=== PATIENT | male | born 1945 ===

== ENCOUNTER 2018-06-15 14:12 | Inpatient (IN) | payer MEDICARE ==
[2018-06-16 23:04] VITALS: BMI 28.6
[2018-06-16] MEDS: Insulin Detemir 100 Units/ml Inj SC SCH (23:55)
[2018-06-17 06:48] LABS: HEMOGLOBIN 13.3 g/dL (12.0-18.0); MEAN CELL VOLUME 84.9 fl (80.0-94.0); MEAN CORPUSCULAR HEMOGLOBIN 28.5 pg (27.0-31.0); MEAN CORPUSCULAR HGB CONC 33.6 g/dL (33.0-37.0); RBC 4.67 Mil/uL (4.40-5.90); RED CELL DISTRIBUTION WIDTH 14.7 % (11.5-14.5); WHITE BLOOD COUNT 7.3 K/uL (4.8-10.8)
[2018-06-17] MEDS: Insulin Lispro (humaLOG) 100 Units/ml Inj SC SCH ×4 (06:51→22:51)
[2018-06-17 06:56] LABS: INR 1.1; PROTHROMBIN TIME 12.1 Seconds (9.8-13.1)
[2018-06-17 06:58] LABS: PARTIAL THROMBOPLASTIN TIME 32.3 Seconds (25.6-37.1)
[2018-06-17 07:13] LABS: ALB/GLOB RATIO 1.2 (1.0-2.1); ALBUMIN 3.6 g/dL (3.5-5.0); ALT/SGPT 37 U/L (21-72); AST/SGOT 30 U/L (17-59); BLOOD UREA NITROGEN 23 mg/dl (9-20); GFR NON-AFRICAN AMERICAN > 60
[2018-06-17] MEDS: Metoprolol Succinate 100 mg XL Tab PO SCH (08:56)
[2018-06-17] MEDS: Aspirin 325 mg EC Tablets PO SCH (08:57)
[2018-06-17] MEDS: Enoxaparin 40 mg Syringe SC SCH (10:00)
--- NOTE | 2018-06-17 11:03 | PCM.OPOC ---
Physiatry Overall Plan of Care - Overall Plan of Care Estimated Length of Stay in Weeks: 3 Rehab Impairment: Mobility, Gait, Balance, Coordination Etiologic Diagnosis: Cerebrovascular Accident Rehab/Medical Prognosis: Fair - Anticipated Interventions Physical Therapy:: Yes Number of Hours: 1.5 Number of times per week: 6 Number of Week(s) Duration: 3 Occupational Therapy:: Yes Number of Hours: 1.5 Number of times per week: 6 Number of Week(s) Duration: 3 Speech Therapy:: Yes Number of Hours: 1 Number of times per week: 5 Number of Week(s) Duration: 3 Recreational Therapy:: Yes Number of Hours: 1 Number of times per week: 5 Number of Week(s) Duration: 3 - Therapy Goals Bed Mobility: Supervision Ambulation: Contact Guard Functional Positional Changes:: Contact Guard - Functional Status Prior to Admission: Independent in ADLs and ambulation. Sometimes used a cane Current Status: Mod A with transfers. Max Ambulation Mod/max A ADLs - Functional Outcomes Functional Outcomes: Starting therapies now - Discharge Plan Identification of Barriers to Discharge: Home Situation (lives alone) Discharge Destination: Home
--- NOTE | 2018-06-17 11:08 | PCM.CPAPS ---
History of Present Illness - History of Present Illness History of Present Illness: Dr Li PMR consultation on Estuardo Aguilar, born 1945, who has been admitted to [facility] for acute inpatient rehabilitation Left HD male. Right CVA with dense left HP. Review of Systems - Constitutional Constitutional: absent: Chills - EENT Ears: absent: Ear Discharge, Ear Pain, Dizziness Nose/Mouth/Throat: absent: Nasal Congestion, Nasal Discharge - Cardiovascular Cardiovascular: absent: Chest Pain, Chest Pain at Rest - Respiratory Respiratory: absent: Hemoptysis - Gastrointestinal Gastrointestinal: absent: Abdominal Pain - Integumentary Integumentary: absent: Bleeding Lesions - Neurological Neurological: absent: Abnormal Hearing, Abnormal Movements, Numbness, Vertigo - Psychiatric Psychiatric: absent: Anxiety Past Patient History - Past Medical History & Family History Past Medical History?: Yes - Past Social History Smoking Status: Never Smoked Home Situation {Lives}: Alone (+ elevator) - CARDIAC Hx Hypercholesterolemia: Yes Hx Hypertension: Yes Other/Comment: Hx of STEMI with LAD stent - NEUROLOGICAL HX Cerebrovascular Accident: Yes Other/Comment: 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 - HEENT Other/Comment: right eye blind. - RENAL Hx Chronic Kidney Disease: No - ENDOCRINE/METABOLIC Hx Diabetes Mellitus Type 2: Yes - HEMATOLOGICAL/ONCOLOGICAL Hx AIDS: No Hx Human Immunodeficiency Virus (HIV): No - MUSCULOSKELETAL/RHEUMATOLOGICAL Hx Falls: Yes - PSYCHIATRIC Hx Substance Use: No - SURGICAL HISTORY Other/Comment: HX of STEMI with LAD stent - ANESTHESIA Hx Anesthesia: Yes Hx Anesthesia Reactions: No Hx Malignant Hyperthermia: No Has any member of the family had a problem w/ anesthesia?: No Meds Allergies/Adverse Reactions: Allergies Allergy/AdvReac Type Severity Reaction Status Date / Time No Known Allergies Allergy Verified 06/16/18 20:50 - Medications Medications: Current Medications Acetaminophen (Tylenol 325mg Tab) 650 mg PO Q6H PRN PRN Reason: Pain scale 4-10 Last Admin: 06/17/18 09:00 Dose: 650 mg Amlodipine Besylate (Norvasc) 5 mg PO DAILY [facility] Last Admin: 06/17/18 08:57 Dose: 5 mg Aspirin (Ecotrin) 325 mg PO DAILY [facility] Last Admin: 06/17/18 08:57 Dose: 325 mg Atorvastatin Calcium (Lipitor) 80 mg PO HS [facility] Last Admin: 06/16/18 23:54 Dose: 80 mg Docusate Sodium (Colace) 100 mg PO BID PRN PRN Reason: Constipation Last Admin: 06/17/18 08:54 Dose: 100 mg Enoxaparin Sodium (Lovenox) 40 mg SC DAILY [facility]; Protocol Gabapentin (Neurontin) 400 mg PO TID [facility] Last Admin: 06/17/18 08:55 Dose: 400 mg Insulin Detemir (Levemir) 30 units SC HS [facility] Last Admin: 06/16/18 23:55 Dose: 30 units Insulin Human Lispro (Humalog) 0 units SC ACHS [facility]; Protocol Last Admin: 06/17/18 06:51 Dose: 4 units Lidocaine (Lidoderm) 1 ea TD DAILY PRN PRN Reason: pain Lisinopril (Zestril) 20 mg PO DAILY [facility] Metoprolol Succinate (Toprol Xl) 100 mg PO DAILY [facility] Last Admin: 06/17/18 08:56 Dose: 100 mg Physical Exam - Constitutional Appears: Non-toxic, No Acute Distress - Head Exam Head Exam: ATRAUMATIC, NORMAL INSPECTION, NORMOCEPHALIC - ENT Exam ENT Exam: Mucous Membranes Moist - Respiratory Exam Respiratory Exam: NORMAL BREATHING PATTERN - Cardiovascular Exam Cardiovascular Exam: REGULAR RHYTHM - GI/Abdominal Exam GI & Abdominal Exam: absent: Distended - Extremities Exam Extremities exam: Negative for: calf tenderness - Neurological Exam Neurological exam: Alert, Oriented x3 - Psychiatric Exam Psychiatric exam: Normal Affect, Normal Mood - Skin Skin Exam: Warm Results - Vital Signs Recent Vital Signs: Last Vital Signs Temp 98.1 F 06/17/18 09:00 Pulse 76 06/17/18 08:57 Resp 22 06/17/18 08:22 BP 146/73 06/17/18 08:57 Pulse Ox 98 06/17/18 08:22 - Labs Result Diagrams: 06/17/18 05:25 06/17/18 05:25 Labs: Laboratory Results - last 24 hr 06/16/18 06/17/18 06/17/18 21:30 05:25 05:25 WBC 7.3 RBC 4.67 Hgb 13.3 Hct 39.6 MCV 84.9 MCH 28.5 MCHC 33.6 RDW 14.7 H Plt Count 185 PT 12.1 INR 1.1 APTT 32.3 Sodium Potassium Chloride Carbon Dioxide Anion Gap BUN Creatinine Est GFR ( Amer) Est GFR (Non-Af Amer) POC Glucose (mg/dL) 267 H Random Glucose Calcium Total Bilirubin AST ALT Alkaline Phosphatase Total Protein Albumin Globulin Albumin/Globulin Ratio 06/17/18 06/17/18 05:25 05:31 WBC RBC Hgb Hct MCV MCH MCHC RDW Plt Count PT INR APTT Sodium 133 Potassium 3.9 Chloride 94 L Carbon Dioxide 28 Anion Gap 15 BUN 23 H Creatinine 1.0 Est GFR ( Amer) > 60 Est GFR (Non-Af Amer) > 60 POC Glucose (mg/dL) 221 H Random Glucose 270 H Calcium 9.0 Total Bilirubin 0.7 AST 30 ALT 37 Alkaline Phosphatase 102 Total Protein 6.7 Albumin 3.6 Globulin 3.1 Albumin/Globulin Ratio 1.2 Assessment & Plan - Assessment and Plan (Free Text) Assessment: 72 y/o left HD male with dense left HP was independent [employer] no pain left UE 0/5 left LE 0/5 PT/OT to continue to help increase functional independence Team conference for d/c planning Pain: controlled Vascular: no evidence of DVT GI: No evidence of constipation or diarrhea Patient is an excellent acute rehabilitation candidate and will have focused PT, OT and recreational therapy to help facilitate a safe and appropriate d/c plan - Functional Status Prior to Admission: Independent [employer] Current Status: Mod/Max A in ADLs and ambulation Impairment Code: 01.1
[2018-06-17] MEDS: Insulin Detemir 100 Units/ml Inj SC SCH (21:49)
[2018-06-18] MEDS: Insulin Lispro (humaLOG) 100 Units/ml Inj SC SCH ×4 (06:52→21:10)
[2018-06-18] MEDS: Enoxaparin 40 mg Syringe SC SCH (08:12)
[2018-06-18] MEDS: Aspirin 325 mg EC Tablets PO SCH (08:29)
[2018-06-18] MEDS: Metoprolol Succinate 100 mg XL Tab PO SCH (09:09)
[2018-06-18] MEDS: Insulin Detemir 100 Units/ml Inj SC SCH (21:09)
--- NOTE | 2018-06-19 00:10 | CP.PCM.HP ---
History of Present Illness - History of Present Illness History of Present Illness: CC: Acute CVA and Left Hemiplegia History of Present Illness: A 72yoM with H/O HTN, DM II, CAD S/p Stent with recurrent Falls was hospitalized for a fall, and found to have Acute CAV with left Hemiplegia, and also had Left Humeral Neck Fracture on sling. Patient admitted for Acute Rehab. Present on Admission - Present on Admission Any Indicators Present on Admission: No Review of Systems - Review of Systems All systems: reviewed and no additional remarkable complaints except Review of Systems: as per HPI Past Patient History - Past Medical History & Family History Past Medical History?: Yes Past Family History: Reviewed and not pertinent - Past Social History Smoking Status: Never Smoked Alcohol: None Drugs: Denies ( ) Home Situation {Lives}: Alone (+ elevator) - CARDIAC Hx Cardiac Disorders: Yes Hx Heart Attack: Yes (LAD stent) Hx Hypercholesterolemia: Yes Hx Hypertension: Yes - NEUROLOGICAL HX Cerebrovascular Accident: Yes - HEENT Other/Comment: right eye blind. - RENAL Hx Chronic Kidney Disease: No - ENDOCRINE/METABOLIC Hx Diabetes Mellitus Type 2: Yes - HEMATOLOGICAL/ONCOLOGICAL Hx AIDS: No Hx Human Immunodeficiency Virus (HIV): No - MUSCULOSKELETAL/RHEUMATOLOGICAL Hx Falls: Yes - PSYCHIATRIC Hx Substance Use: No - SURGICAL HISTORY Other/Comment: HX of STEMI with LAD stent - ANESTHESIA Hx Anesthesia: Yes Hx Anesthesia Reactions: No Hx Malignant Hyperthermia: No Has any member of the family had a problem w/ anesthesia?: No Meds Allergies/Adverse Reactions: Allergies Allergy/AdvReac Type Severity Reaction Status Date / Time No Known Allergies Allergy Verified 06/16/18 20:50 Physical Exam - Constitutional Appears: Well, No Acute Distress - Head Exam Head Exam: ATRAUMATIC, NORMAL INSPECTION, NORMOCEPHALIC - Eye Exam Eye Exam: EOMI, Normal appearance, PERRL Pupil Exam: NORMAL ACCOMODATION, PERRL - ENT Exam ENT Exam: Mucous Membranes Moist, Normal Exam - Neck Exam Neck exam: Positive for: Normal Inspection - Respiratory Exam Respiratory Exam: Clear to Auscultation Bilateral, NORMAL BREATHING PATTERN - Cardiovascular Exam Cardiovascular Exam: REGULAR RHYTHM, +S1, +S2 - GI/Abdominal Exam GI & Abdominal Exam: Normal Bowel Sounds, Soft. absent: Tenderness - Extremities Exam Extremities exam: Positive for: normal capillary refill, normal inspection - Back Exam Back exam: NORMAL INSPECTION - Neurological Exam Neurological exam: Abnormal Gait, Motor Sensory Deficit, Oriented x3, Reflexes Normal Additional comments: Left Upper extremities 0/5, and Lower E Power 2/5. Left VII Palsy. Left UE sling. - Psychiatric Exam Psychiatric exam: Normal Affect, Normal Mood - Skin Skin Exam: Dry, Intact, Normal Color, Warm Results - Vital Signs Recent Vital Signs: Last Vital Signs Temp 98 F 06/18/18 20:40 Pulse 69 06/18/18 20:40 Resp 20 06/18/18 20:40 BP 153/79 H 06/18/18 20:40 Pulse Ox 99 06/18/18 20:40 - Labs Result Diagrams: 06/23/18 05:35 06/23/18 05:35 Labs: Laboratory Results - last 24 hr 06/18/18 06/18/18 06/18/18 05:25 06:01 11:26 POC Glucose (mg/dL) 249 H 402 H* Prostate Specific Ag 0.793 06/18/18 15:57 POC Glucose (mg/dL) 343 H Prostate Specific Ag Assessment & Plan (1) Acute right MCA stroke Status: Acute Priority: High (2) Left hemiplegia Status: Acute Priority: High (3) Fracture of neck of left humerus Status: Acute Priority: High (4) Recurrent falls Status: Acute Priority: High - Assessment and Plan (Free Text) Plan: C/w Aspirin 325mg Daily. Lipitor 80mg Daily, C/w Norvasc, Metoprolol and Lisinopril C/w Levemir, and SS coverage PT/OT Physiatry Consulted
--- NOTE | 2018-06-19 00:10 | CP.PCM.PN ---
Subjective - Date & Time of Evaluation Date of Evaluation: 06/18/18 Objective - Vital Signs/Intake and Output Vital Signs (last 24 hours): Temp Pulse Resp BP Pulse Ox 98 F 69 20 153/79 H 99 06/18/18 20:40 06/18/18 20:40 06/18/18 20:40 06/18/18 20:40 06/18/18 20:40 - Medications Medications: Current Medications Acetaminophen (Tylenol 325mg Tab) 650 mg PO Q6H PRN PRN Reason: Pain scale 4-10 Last Admin: 06/18/18 09:40 Dose: 650 mg Amlodipine Besylate (Norvasc) 5 mg PO DAILY [facility] Last Admin: 06/18/18 08:13 Dose: 5 mg Aspirin (Ecotrin) 325 mg PO DAILY [facility] Last Admin: 06/18/18 08:29 Dose: 325 mg Atorvastatin Calcium (Lipitor) 80 mg PO HS [facility] Last Admin: 06/18/18 21:08 Dose: 80 mg Docusate Sodium (Colace) 100 mg PO BID [facility] Enoxaparin Sodium (Lovenox) 40 mg SC DAILY [facility]; Protocol Last Admin: 06/18/18 08:12 Dose: 40 mg Gabapentin (Neurontin) 400 mg PO TID [facility] Last Admin: 06/18/18 16:43 Dose: 400 mg Insulin Detemir (Levemir) 30 units SC HS [facility] Last Admin: 06/18/18 21:09 Dose: 30 units Insulin Human Lispro (Humalog) 0 units SC ACHS [facility]; Protocol Last Admin: 06/18/18 21:10 Dose: 3 units Lactulose (Enulose) 20 gm PO Q12 PRN PRN Reason: for constipation Lidocaine (Lidoderm) 1 ea TD DAILY PRN PRN Reason: pain Lisinopril (Zestril) 20 mg PO DAILY [facility] Last Admin: 06/18/18 09:10 Dose: 20 mg Metoprolol Succinate (Toprol Xl) 100 mg PO DAILY [facility] Last Admin: 06/18/18 09:09 Dose: 100 mg Tamsulosin HCl (Flomax) 0.4 mg PO DAILY [facility] Last Admin: 06/18/18 10:00 Dose: 0.4 mg - Labs Labs: 06/17/18 05:25 06/17/18 05:25 PT 12.1 Seconds (9.8-13.1) 06/17/18 05:25 INR 1.1 06/17/18 05:25 APTT 32.3 Seconds (25.6-37.1) 06/17/18 05:25
[2018-06-19] MEDS: Insulin Lispro (humaLOG) 100 Units/ml Inj SC SCH ×5 (06:53→21:09)
[2018-06-19] MEDS: Enoxaparin 40 mg Syringe SC SCH (08:11)
[2018-06-19] MEDS: Aspirin 325 mg EC Tablets PO SCH (08:11)
[2018-06-19] MEDS: Metoprolol Succinate 100 mg XL Tab PO SCH (08:12)
[2018-06-19] MEDS: Lidocaine 5% Patch TD PRN (10:31)
[2018-06-19] MEDS: Insulin Detemir 100 Units/ml Inj SC SCH (21:09)
[2018-06-20 06:54] LABS: HEMOGLOBIN 12.8 g/dL (12.0-18.0); MEAN CELL VOLUME 85.8 fl (80.0-94.0); MEAN CORPUSCULAR HEMOGLOBIN 28.6 pg (27.0-31.0); MEAN CORPUSCULAR HGB CONC 33.3 g/dL (33.0-37.0); RBC 4.48 Mil/uL (4.40-5.90); WHITE BLOOD COUNT 6.2 K/uL (4.8-10.8)
[2018-06-20 07:03] LABS: BLOOD UREA NITROGEN 18 mg/dl (9-20); CALCIUM 9.1 mg/dL (8.4-10.2); GFR NON-AFRICAN AMERICAN > 60
[2018-06-20] MEDS: Insulin Lispro (humaLOG) 100 Units/ml Inj SC SCH ×4 (07:10→21:06)
[2018-06-20] MEDS: Aspirin 325 mg EC Tablets PO SCH (08:30)
[2018-06-20] MEDS: Enoxaparin 40 mg Syringe SC SCH (08:31)
[2018-06-20] MEDS: Metoprolol Succinate 100 mg XL Tab PO SCH (08:31)
[2018-06-20] MEDS: Insulin Detemir 100 Units/ml Inj SC SCH (21:05)
[2018-06-21] MEDS: Insulin Lispro (humaLOG) 100 Units/ml Inj SC SCH ×4 (06:57→21:37)
[2018-06-21] MEDS: Metoprolol Succinate 100 mg XL Tab PO SCH (08:27)
[2018-06-21] MEDS: Aspirin 325 mg EC Tablets PO SCH (08:28)
[2018-06-21] MEDS: Enoxaparin 40 mg Syringe SC SCH (08:28)
[2018-06-21] MEDS: Insulin Detemir 100 Units/ml Inj SC SCH (21:38)
[2018-06-22] MEDS: Insulin Lispro (humaLOG) 100 Units/ml Inj SC SCH ×4 (07:53→21:30)
[2018-06-22] MEDS: Enoxaparin 40 mg Syringe SC SCH (08:30)
[2018-06-22] MEDS: Metoprolol Succinate 100 mg XL Tab PO SCH (08:31)
[2018-06-22] MEDS: Aspirin 325 mg EC Tablets PO SCH (08:32)
--- NOTE | 2018-06-22 11:58 | CP.PCM.PN ---
Subjective - Date & Time of Evaluation Date of Evaluation: 06/19/18 Objective - Vital Signs/Intake and Output Vital Signs (last 24 hours): Temp Pulse Resp BP Pulse Ox 97 F L 64 20 145/71 98 06/22/18 09:00 06/22/18 09:00 06/22/18 09:00 06/22/18 09:00 06/22/18 07:41 - Medications Medications: Current Medications Acetaminophen (Tylenol 325mg Tab) 650 mg PO Q6H PRN PRN Reason: Pain scale 4-10 Last Admin: 06/22/18 08:35 Dose: 650 mg Amlodipine Besylate (Norvasc) 5 mg PO DAILY [facility] Last Admin: 06/22/18 08:32 Dose: 5 mg Aspirin (Ecotrin) 325 mg PO DAILY [facility] Last Admin: 06/22/18 08:32 Dose: 325 mg Atorvastatin Calcium (Lipitor) 80 mg PO HS [facility] Last Admin: 06/21/18 21:36 Dose: 80 mg Docusate Sodium (Colace) 100 mg PO BID [facility] Last Admin: 06/22/18 08:30 Dose: 100 mg Gabapentin (Neurontin) 400 mg PO TID [facility] Last Admin: 06/22/18 08:30 Dose: 400 mg Insulin Detemir (Levemir) 30 units SC [facility] Last Admin: 06/21/18 21:38 Dose: 30 units Insulin Human Lispro (Humalog) 0 units SC [facility]; Protocol Last Admin: 06/22/18 07:53 Dose: 4 units Lactulose (Enulose) 20 gm PO Q12 PRN PRN Reason: for constipation Last Admin: 06/21/18 08:30 Dose: 20 gm Lidocaine (Lidoderm) 1 ea TD DAILY PRN PRN Reason: pain Last Admin: 06/19/18 10:31 Dose: 1 ea Lisinopril (Zestril) 20 mg PO DAILY [facility] Last Admin: 06/22/18 08:31 Dose: 20 mg Metoprolol Succinate (Toprol Xl) 100 mg PO DAILY [facility] Last Admin: 06/22/18 08:31 Dose: 100 mg Tamsulosin HCl (Flomax) 0.4 mg PO DAILY [facility] Last Admin: 06/22/18 08:32 Dose: 0.4 mg - Labs Labs: 06/20/18 05:20 06/20/18 05:20 PT 12.1 Seconds (9.8-13.1) 06/17/18 05:25 INR 1.1 06/17/18 05:25 APTT 32.3 Seconds (25.6-37.1) 06/17/18 05:25
--- NOTE | 2018-06-22 11:59 | CP.PCM.PN ---
Subjective - Date & Time of Evaluation Date of Evaluation: 06/21/18 Objective - Vital Signs/Intake and Output Vital Signs (last 24 hours): Temp Pulse Resp BP Pulse Ox 97 F L 64 20 145/71 98 06/22/18 09:00 06/22/18 09:00 06/22/18 09:00 06/22/18 09:00 06/22/18 07:41 - Medications Medications: Current Medications Acetaminophen (Tylenol 325mg Tab) 650 mg PO Q6H PRN PRN Reason: Pain scale 4-10 Last Admin: 06/22/18 08:35 Dose: 650 mg Amlodipine Besylate (Norvasc) 5 mg PO DAILY [facility] Last Admin: 06/22/18 08:32 Dose: 5 mg Aspirin (Ecotrin) 325 mg PO DAILY [facility] Last Admin: 06/22/18 08:32 Dose: 325 mg Atorvastatin Calcium (Lipitor) 80 mg PO HS [facility] Last Admin: 06/21/18 21:36 Dose: 80 mg Docusate Sodium (Colace) 100 mg PO BID [facility] Last Admin: 06/22/18 08:30 Dose: 100 mg Gabapentin (Neurontin) 400 mg PO TID [facility] Last Admin: 06/22/18 08:30 Dose: 400 mg Insulin Detemir (Levemir) 30 units SC [facility] Last Admin: 06/21/18 21:38 Dose: 30 units Insulin Human Lispro (Humalog) 0 units SC [facility]; Protocol Last Admin: 06/22/18 07:53 Dose: 4 units Lactulose (Enulose) 20 gm PO Q12 PRN PRN Reason: for constipation Last Admin: 06/21/18 08:30 Dose: 20 gm Lidocaine (Lidoderm) 1 ea TD DAILY PRN PRN Reason: pain Last Admin: 06/19/18 10:31 Dose: 1 ea Lisinopril (Zestril) 20 mg PO DAILY [facility] Last Admin: 06/22/18 08:31 Dose: 20 mg Metoprolol Succinate (Toprol Xl) 100 mg PO DAILY [facility] Last Admin: 06/22/18 08:31 Dose: 100 mg Tamsulosin HCl (Flomax) 0.4 mg PO DAILY [facility] Last Admin: 06/22/18 08:32 Dose: 0.4 mg - Labs Labs: 06/20/18 05:20 06/20/18 05:20 PT 12.1 Seconds (9.8-13.1) 06/17/18 05:25 INR 1.1 06/17/18 05:25 APTT 32.3 Seconds (25.6-37.1) 06/17/18 05:25
--- NOTE | 2018-06-22 11:59 | CP.PCM.PN ---
Subjective - Date & Time of Evaluation Date of Evaluation: 06/20/18 Objective - Vital Signs/Intake and Output Vital Signs (last 24 hours): Temp Pulse Resp BP Pulse Ox 97 F L 64 20 145/71 98 06/22/18 09:00 06/22/18 09:00 06/22/18 09:00 06/22/18 09:00 06/22/18 07:41 - Medications Medications: Current Medications Acetaminophen (Tylenol 325mg Tab) 650 mg PO Q6H PRN PRN Reason: Pain scale 4-10 Last Admin: 06/22/18 08:35 Dose: 650 mg Amlodipine Besylate (Norvasc) 5 mg PO DAILY [facility] Last Admin: 06/22/18 08:32 Dose: 5 mg Aspirin (Ecotrin) 325 mg PO DAILY [facility] Last Admin: 06/22/18 08:32 Dose: 325 mg Atorvastatin Calcium (Lipitor) 80 mg PO HS [facility] Last Admin: 06/21/18 21:36 Dose: 80 mg Docusate Sodium (Colace) 100 mg PO BID [facility] Last Admin: 06/22/18 08:30 Dose: 100 mg Gabapentin (Neurontin) 400 mg PO TID [facility] Last Admin: 06/22/18 08:30 Dose: 400 mg Insulin Detemir (Levemir) 30 units SC [facility] Last Admin: 06/21/18 21:38 Dose: 30 units Insulin Human Lispro (Humalog) 0 units SC [facility]; Protocol Last Admin: 06/22/18 07:53 Dose: 4 units Lactulose (Enulose) 20 gm PO Q12 PRN PRN Reason: for constipation Last Admin: 06/21/18 08:30 Dose: 20 gm Lidocaine (Lidoderm) 1 ea TD DAILY PRN PRN Reason: pain Last Admin: 06/19/18 10:31 Dose: 1 ea Lisinopril (Zestril) 20 mg PO DAILY [facility] Last Admin: 06/22/18 08:31 Dose: 20 mg Metoprolol Succinate (Toprol Xl) 100 mg PO DAILY [facility] Last Admin: 06/22/18 08:31 Dose: 100 mg Tamsulosin HCl (Flomax) 0.4 mg PO DAILY [facility] Last Admin: 06/22/18 08:32 Dose: 0.4 mg - Labs Labs: 06/20/18 05:20 06/20/18 05:20 PT 12.1 Seconds (9.8-13.1) 06/17/18 05:25 INR 1.1 06/17/18 05:25 APTT 32.3 Seconds (25.6-37.1) 06/17/18 05:25
--- NOTE | 2018-06-22 13:09 | PCM.PSYTMC ---
Acute Rehab Team Conference - - Vital Signs: Vital Signs (Last 8 Hours): Vital Signs 06/22/18 06/22/18 06/22/18 07:41 08:31 08:32 Temperature 97.0 F L Pulse Rate 64 64 64 Respiratory 20 Rate Blood Pressure 145/71 145/71 145/71 O2 Sat by Pulse 98 Oximetry 06/22/18 06/22/18 08:35 09:00 Temperature 97 F L 97 F L Pulse Rate 64 Respiratory 20 Rate Blood Pressure 145/71 O2 Sat by Pulse Oximetry Pain: 0 - Precautions: Precautions: Fall Prevention, Aspiration, Cardiac/Pulmonary, Pressure Ulcer - Medications/Other Issues: Comment: constipated - Consults: Comment: Dr Li - Toileting: Toileting: Dependent - Bladder Management: Bladder Pattern: Incontinent Voiding Method: Urinal, Diaper Bladder Management: Dependent - Transfers: Transfers: Maximal Assistance - ADL's: ADL's: Modified Independent - Pain Management: Other Intervention:: tylenol for pain - Patient/Family Teaching: Other Intervention:: post cva care, safety fall precaution medication teachings - Goals/Time Frame: Comment: as per multidiciplinary plan of care - Provider: Registered Nurse:: Zakiya Mendes Physical Therapy - Bed Mobility Bed Mobility: Maximum Assistance - Transfers Wheelchair to Mat: Verbal Cues, Maximum Assistance Sit to Stand: Verbal Cues, Maximum Assistance - Ambulation Level of Assistance: Maximum Assistance, Dependent Distance (ft.): 4 Orthoses: n/a Comment: 4 feet at wall bar with max to total A; patient with poor midline control and impaired command following - Stair Negotiation Stairs: Level of Assistance: Not Tested - Standing Balance Static Stand: Maximal Assistance - Pain Pain (assessed during therapy session): 6 Alleviating Techniques: Position Change, Distraction, Relaxation Techniques Comment: L shoulder - Insight/Carryover Insight/Carryover: Fair - Patient/Family Education Comment: -safety, therapy schedule, therapy goals, stroke recovery, POC, use of call gutierrez, reduced extraneous movement, midline control - Assessment/Plan Assessment: Mr. Souza continues to require maximal assistance for all functional tasks at this time. Patient is internally and externally distracted. Patient requires frequent repetition of cues and benefits from the same cue given in various methods such as visual, auditory and demonstration. Patient has poor attention and requires cues to focus on task as he has tangential verbalizations with therapist as well as excessive non-functional tangential movements during both rest and activity. Patient demonstrates poor midline control which is improving in static sitting but remains impaired in dynamic standing. PT focused on static standing for improved midline control & orientation today prior to progressing with gait. Patient with retropulsion and rightwards leaning; with excessive cueing patient able to improve orientation for short time but requires max A to do so. Patient will benefit from continued skilled therapy to maximize safety and independence with all mobility s/p CVA. Patient requires skilled therapy services to address above deficits to focus on reduction of burden of care. - Goals Timeframe: 7 days Goals: Mr. Aguilar will complete the following with in 7 days: -perform rolling with mod A. -perform supine to/from sit with mod A. -perform sit to/from stand with with mod A at R wall bar and with feliz-walker. -perform stand pivot transfer with mod A without device. -ambulate 15 feet at R wall bar with max A - Provider Physical Therapist:: Alize Whitfield License Number:: [id number] Occupational Therapy - Arousal/Attention/Orientation Level of Consciousness: Awake, Alert, Forgetful Patient Orientation: Person, Place, Time, Appropriate to Age, Appropriate to Situation Assessment Comment: -easily distracted by visual/auditory stimuli - ADL/IADL Self Feeding: Supervision, Verbal Cues, Set-up Help Grooming: Verbal Cues, Set-up Help, Contact Guard, Minimal Assistance Bathing-Upper Ext: Verbal Cues, Set-up Help, Maximum Assistance Bathing-Lower Ext: Dependent Dressing-Upper Ext: Verbal Cues, Set-up Help, Maximum Assistance Dressing-Lower Ext: Dependent Comment: shower transfers : TBA when safe - Sitting Balance Static Sitting: Supervision Dynamic Sitting: Reaches across midline, Reaches out of base of support, Reaches within base of support, Minimal Assistance, Moderate Assistance Comment: seated unsupported on mat/bed - Transfers Wheelchair to Bed Transfers: Verbal Cues, Set-up Help, Maximum Assistance Toilet Transfers: Verbal Cues, Set-up Help, Maximum Assistance Comment: max assist of 1-2 persons 2' pt's impulsivity - Wheelchair Management Level of Assistance: Maximum Assistance Distance (ft.): 150 - Upper Extremity Status Right Upper Extremity Comment: AROM is WNLS Left Upper Extremity Comment: R shoulder immobilized by sling; NO PROM TO L SHOULDER. No active ROM noted in L elbow, L forearm, L wrist or digits - Pain Pain (assessed during therapy session): 5 Alleviating Techniques: Medication, Distraction, Inactivity - Insight/Carryover Insight/Carryover: Poor - Patient/Family Education Comment: -initiated for adls, transfers and mobility training uisng adaptive/compensatory strategies--further training needed. -feliz-techniques for upper/lower body dressing. -w/c propulsion/management. -safety, use of call gutierrez. -feeding and toileting program/training. - L sling replacement as original was soiled. -rehab/OT goals, plan of care. -LUE immobilization - Assessment/Plan Assessment: Pt is a 72 year old L handed male with dx: acute CVA. Precautions: R eye blindness([employer] per family post surgery), falls, cardiac, L shoulder immobilized by sling at all times /shoulder fx--NO ROM. Pt with the following impairments: -L visual inattention. -impaired selective/sustained attention(easily distracted). -impaired sitting/standing balance/tolerance--postural control. -impaired midline orientation. -impaired safety awareness. -impaired LUE/LLE strength/motor control. -+ L shoulder immobilization. ---which all impact on pt's function/safety with self care, transfers/mobility and Iadls. Pt will continue skilled Occupational Therapy, intensive rehab to address functional impairments to maxmize overal function in self care, transfers/mobility using adaptive/compensatory strategies. Pt demonstrates increase postural control, ability to scoot back in w/c , increase attention to L side with less prompting. Pt may likely need DARELL 2' extent of multiplle impairments along with visual-perceptual & cognitive deficits & limited family support. Pt easily distracted by auditory & visual stimulit needing constant re-direction to attend and complete tasks. Pt constantly joking or discussing irrevelevant topics. Pt unsafe with managing LUUE for self ROM exercises. *Goal: min-mod assist and verbal cues overall for adls, transfers/mobility with assistive devices prn - Goals Timeframe: 8 days Comment: *FEEDING: DS/setup. *GROOMING: S/setup. *UPPER BODY DRESSING: Mod assist and verbal cues feliz-techniques. *LOWER BODY DRESSING: Mod-max assist and verbal cues with assistive device prn, feliz-techniques. *W/C MANAGEMENT/PROPULSION: Min assist and verbal cues to propel w/c using RUE to push/RLE to steer. *BATHING: moderate assist and verbal cues seated. *LUE STRENGTH: increase to 2-/5 so can use as stabilizer - Provider Occupational Therapist:: Mikaela Elizalde License Number: [id number] Speech Therapy - Consult Information Patient on Program: Yes Medical Diagnosis: CVA Treatment Diagnosis: Moderate Cognitive Communication Impairment - Assessment Problem Solving Impairment: Moderate Memory Impairment: Moderate - Plan Assessment: Mr Aguilar currently presents with a moderate cognitive communcation impairment with deficits noted in the areas of orientation, biographical recall, sustained attention and Immediate recall. Cognition is a barrier to discharge. Plan: Continue Speech/Language Therapy Frequency: 3-5 times per week Duration: 1 week Goals/Timeframe: See progress note dated 06/21 for updated goals and POC Recommendations: Continue skilled ST services. - Provider Therapist: Marya Rodriguez License Number: [id number] Recreational Therapy - Participation Participation: Participates in Individual and/or Group Sessions - Attendance Attendance: 3-5 times per week - Socialization Level of Socialization: Initiates/interacts freely with care givers and peer - Assessment Assessment/Plan: Pt is agreeable to participate in recreation therapy sessions offered on unit. Pt requires mod-max A throughout all leisure tasks 2' poor command following and poor attention to task. Pt requires max verbal cues for redirection to task and for error recognition 2' impulsivity and poor carryover of task rules. Pt was oriented to modified ivone card task and required mod A to complete task. Pt's barriers to participation are impulsivity and L side visual inattention. Pt will continue to benefit from participating in recreation therapy sessions throughout stay on unit. Problems Currently Limiting Participation: decrease attention to task, L side visual neglect, decrease safety awareness, impaired direction following, pain, L UE sling at all times Goals and Time Frame: Pt will participate in a 30 minute tabletop leisure task without any verbal cues for redirection to task or turn taking by date of discharge. - Provider Therapist: Kelley Kaplan Nutrition - Current Diet Current Diet/Supplement/Feedings: Moderate consistent CHO 2 gram Na low fat/low cholesterol - Appetite Percent Meal Consumed: 50-74% - Assessment/Goals/Time Frame Assessments/Goals/Time Frame: Pt at moderate nutritional risk. 1. Pt to consume 75-100% of meals. 2 Blood glucoses to be between in 70-180 mg/dl. Follow-up due on 06/24/2018 - Provider Provider: Olga Freitas Case Management - Psychosocial Assessment Support Systems: Dasha Aguilar (ex-) - [phone]. Jesus (son) - [phone] Psychological Interventions/Needs: Patient is AAO with some periods of confusion Discharge Concerns: Patient lives alone in a senior building where his ex- and her brother also life. Patient/Family Meeting: CM met with patient and rehab team. Intervention/Goal/Outcome: 1. Goal: 24 hr supervision/care 2. Plan: subacute rehab/discuss with family 3. discuss with pt and family recommendations of DARELL and begin to look at list of facilities to choose which they would want pt to go to 4. continued stay auth via [place] 5. continued emotional support - Discharge Plan Discharge Plan: Subacute care - Provider Provider: Nichole Patel License Number: [id number] Rehabilitation Plan - Treatment Plan Treatment Plan: Physical Therapy, Occupational Therapy, Speech, Dietary, Patient/Family Education - Discharge Plan Estimated Date of Discharge: 07/09/18 Discharge to: Subacute
--- NOTE | 2018-06-22 13:20 | CP.PCM.PN ---
Subjective - Date & Time of Evaluation Date of Evaluation: 06/22/18 Time of Evaluation: 13:19 - Subjective Subjective: Patient seen in the room with family present denies sob/cp left arm in sling dense HP discussed therapy and his function. Made it clear that he is improving but slowly He is an ideal acute rehab candidate given dense HP and limited function but able to participate in full therapy sessions and making progress continue current care Objective - Vital Signs/Intake and Output Vital Signs (last 24 hours): Temp Pulse Resp BP Pulse Ox 97 F L 64 20 145/71 98 06/22/18 09:00 06/22/18 09:00 06/22/18 09:00 06/22/18 09:00 06/22/18 07:41 - Medications Medications: Current Medications Acetaminophen (Tylenol 325mg Tab) 650 mg PO Q6H PRN PRN Reason: Pain scale 4-10 Last Admin: 06/22/18 08:35 Dose: 650 mg Amlodipine Besylate (Norvasc) 5 mg PO DAILY [facility] Last Admin: 06/22/18 08:32 Dose: 5 mg Aspirin (Ecotrin) 325 mg PO DAILY [facility] Last Admin: 06/22/18 08:32 Dose: 325 mg Atorvastatin Calcium (Lipitor) 80 mg PO [facility] Last Admin: 06/21/18 21:36 Dose: 80 mg Docusate Sodium (Colace) 100 mg PO BID [facility] Last Admin: 06/22/18 08:30 Dose: 100 mg Gabapentin (Neurontin) 400 mg PO TID [facility] Last Admin: 06/22/18 12:31 Dose: 400 mg Insulin Detemir (Levemir) 30 units SC [facility] Last Admin: 06/21/18 21:38 Dose: 30 units Insulin Human Lispro (Humalog) 0 units SC [facility]; Protocol Last Admin: 06/22/18 12:24 Dose: 6 units Lactulose (Enulose) 20 gm PO Q12 PRN PRN Reason: for constipation Last Admin: 06/21/18 08:30 Dose: 20 gm Lidocaine (Lidoderm) 1 ea TD DAILY PRN PRN Reason: pain Last Admin: 06/19/18 10:31 Dose: 1 ea Lisinopril (Zestril) 20 mg PO DAILY [facility] Last Admin: 06/22/18 08:31 Dose: 20 mg Metoprolol Succinate (Toprol Xl) 100 mg PO DAILY [facility] Last Admin: 06/22/18 08:31 Dose: 100 mg Tamsulosin HCl (Flomax) 0.4 mg PO DAILY [facility] Last Admin: 06/22/18 08:32 Dose: 0.4 mg - Labs Labs: 06/20/18 05:20 06/20/18 05:20 PT 12.1 Seconds (9.8-13.1) 06/17/18 05:25 INR 1.1 06/17/18 05:25 APTT 32.3 Seconds (25.6-37.1) 06/17/18 05:25
[2018-06-22] MEDS: Insulin Detemir 100 Units/ml Inj SC SCH (21:29)
--- NOTE | 2018-06-23 00:06 | CP.PCM.PN ---
Subjective - Date & Time of Evaluation Date of Evaluation: 06/22/18 Objective - Vital Signs/Intake and Output Vital Signs (last 24 hours): Temp Pulse Resp BP Pulse Ox 97.9 F 67 20 134/76 98 06/22/18 20:00 06/22/18 20:00 06/22/18 20:00 06/22/18 20:00 06/22/18 20:00 - Medications Medications: Current Medications Acetaminophen (Tylenol 325mg Tab) 650 mg PO Q6H PRN PRN Reason: Pain scale 4-10 Last Admin: 06/22/18 15:02 Dose: 650 mg Amlodipine Besylate (Norvasc) 5 mg PO DAILY [facility] Last Admin: 06/22/18 08:32 Dose: 5 mg Aspirin (Ecotrin) 325 mg PO DAILY [facility] Last Admin: 06/22/18 08:32 Dose: 325 mg Atorvastatin Calcium (Lipitor) 80 mg PO HS [facility] Last Admin: 06/22/18 21:29 Dose: 80 mg Docusate Sodium (Colace) 100 mg PO BID [facility] Last Admin: 06/22/18 17:41 Dose: 100 mg Enoxaparin Sodium (Lovenox) 40 mg SC DAILY [facility]; Protocol Gabapentin (Neurontin) 400 mg PO TID [facility] Last Admin: 06/22/18 17:45 Dose: 400 mg Insulin Detemir (Levemir) 30 units SC [facility] Last Admin: 06/22/18 21:29 Dose: 30 units Insulin Human Lispro (Humalog) 0 units SC [facility]; Protocol Last Admin: 06/22/18 21:30 Dose: 2 units Lactulose (Enulose) 20 gm PO Q12 PRN PRN Reason: for constipation Last Admin: 06/22/18 17:50 Dose: 20 gm Lidocaine (Lidoderm) 1 ea TD DAILY PRN PRN Reason: pain Last Admin: 06/19/18 10:31 Dose: 1 ea Lisinopril (Zestril) 20 mg PO DAILY [facility] Last Admin: 06/22/18 08:31 Dose: 20 mg Metoprolol Succinate (Toprol Xl) 100 mg PO DAILY [facility] Last Admin: 06/22/18 08:31 Dose: 100 mg Tamsulosin HCl (Flomax) 0.4 mg PO DAILY [facility] Last Admin: 06/22/18 08:32 Dose: 0.4 mg - Labs Labs: 06/20/18 05:20 06/20/18 05:20 PT 12.1 Seconds (9.8-13.1) 06/17/18 05:25 INR 1.1 06/17/18 05:25 APTT 32.3 Seconds (25.6-37.1) 06/17/18 05:25
[2018-06-23 07:02] LABS: HEMOGLOBIN 12.8 g/dL (12.0-18.0); MEAN CELL VOLUME 85.5 fl (80.0-94.0); MEAN CORPUSCULAR HEMOGLOBIN 28.3 pg (27.0-31.0); MEAN CORPUSCULAR HGB CONC 33.1 g/dL (33.0-37.0); RBC 4.51 Mil/uL (4.40-5.90); RED CELL DISTRIBUTION WIDTH 14.5 % (11.5-14.5); WHITE BLOOD COUNT 8.4 K/uL (4.8-10.8)
[2018-06-23 07:21] LABS: BLOOD UREA NITROGEN 22 mg/dl (9-20); CALCIUM 9.2 mg/dL (8.4-10.2); GFR NON-AFRICAN AMERICAN > 60
[2018-06-23] MEDS: Metoprolol Succinate 100 mg XL Tab PO SCH (08:16)
[2018-06-23] MEDS: Enoxaparin 40 mg Syringe SC SCH (08:19)
[2018-06-23] MEDS: Aspirin 325 mg EC Tablets PO SCH (08:20)
[2018-06-23] MEDS: Insulin Lispro (humaLOG) 100 Units/ml Inj SC SCH ×4 (08:20→21:13)
--- NOTE | 2018-06-23 17:32 | CP.PCM.PN ---
Subjective - Date & Time of Evaluation Date of Evaluation: 06/23/18 Time of Evaluation: 17:29 - Subjective Subjective: Dr Li PMR consultation on Estuardo Aguilar, born 1945, who has been admitted to [facility] for acute inpatient rehabilitation Left HD male. 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 + left neglect. Also left greater tuberosity fracture. Treated non-operatively. In sling and NWB on the left UE through the shoulder Objective - Vital Signs/Intake and Output Vital Signs (last 24 hours): Temp Pulse Resp BP Pulse Ox 97.9 F 70 18 146/79 96 06/23/18 09:34 06/23/18 09:34 06/23/18 09:34 06/23/18 09:34 06/23/18 09:34 - Medications Medications: Current Medications Acetaminophen (Tylenol 325mg Tab) 650 mg PO Q6H PRN PRN Reason: Pain scale 4-10 Last Admin: 06/22/18 15:02 Dose: 650 mg Amlodipine Besylate (Norvasc) 5 mg PO DAILY [facility] Last Admin: 06/23/18 08:19 Dose: 5 mg Aspirin (Ecotrin) 325 mg PO DAILY [facility] Last Admin: 06/23/18 08:20 Dose: 325 mg Atorvastatin Calcium (Lipitor) 80 mg PO HS [facility] Last Admin: 06/22/18 21:29 Dose: 80 mg Docusate Sodium (Colace) 100 mg PO BID [facility] Last Admin: 06/23/18 08:18 Dose: 100 mg Enoxaparin Sodium (Lovenox) 40 mg SC DAILY [facility]; Protocol Last Admin: 06/23/18 08:19 Dose: 40 mg Gabapentin (Neurontin) 400 mg PO TID [facility] Last Admin: 06/23/18 12:28 Dose: 400 mg Insulin Detemir (Levemir) 30 units SC [facility] Last Admin: 06/22/18 21:29 Dose: 30 units Insulin Human Lispro (Humalog) 0 units SC [facility]; Protocol Last Admin: 06/23/18 12:25 Dose: 10 units Lactulose (Enulose) 20 gm PO Q12 PRN PRN Reason: for constipation Last Admin: 06/22/18 17:50 Dose: 20 gm Lidocaine (Lidoderm) 1 ea TD DAILY PRN PRN Reason: pain Last Admin: 06/19/18 10:31 Dose: 1 ea Lisinopril (Zestril) 20 mg PO DAILY [facility] Last Admin: 06/23/18 08:18 Dose: 20 mg Metoprolol Succinate (Toprol Xl) 100 mg PO DAILY [facility] Last Admin: 06/23/18 08:16 Dose: 100 mg Tamsulosin HCl (Flomax) 0.4 mg PO DAILY [facility] Last Admin: 06/23/18 08:17 Dose: 0.4 mg - Labs Labs: 06/23/18 05:35 06/23/18 05:35 PT 12.1 Seconds (9.8-13.1) 06/17/18 05:25 INR 1.1 06/17/18 05:25 APTT 32.3 Seconds (25.6-37.1) 06/17/18 05:25 - Constitutional Appears: Non-toxic - Head Exam Head Exam: NORMAL INSPECTION - Eye Exam Eye Exam: EOMI - ENT Exam ENT Exam: Mucous Membranes Moist - Respiratory Exam Respiratory Exam: NORMAL BREATHING PATTERN - Cardiovascular Exam Cardiovascular Exam: REGULAR RHYTHM - GI/Abdominal Exam GI & Abdominal Exam: absent: Guarding - Neurological Exam Neurological Exam: Alert Neuro motor strength exam: Left Upper Extremity: 0, Right Upper Extremity: 5, Left Lower Extremity: 0, Right Lower Extremity: 5 - Psychiatric Exam Psychiatric exam: Normal Affect, Normal Mood - Skin Skin Exam: Warm Assessment and Plan - Assessment and Plan (Free Text) Assessment: 72 year old male with left HP, dense and left neglect. Not yet ambulatory and poor trunk control PT/OT to continue to help increase functional independence Team conference for d/c planning Pain: controlled. Will get ortho to evaluate follow up x-ray which will be done next Vascular: no evidence of DVT GI: No evidence of constipation or diarrhea Patient continues to be an excellent acute rehabilitation candidate and will have continued focused speech, PT, OT and recreational therapy to help facilitate a safe and appropriate d/c plan
[2018-06-23] MEDS: Insulin Detemir 100 Units/ml Inj SC SCH (21:12)
[2018-06-24] MEDS: Insulin Lispro (humaLOG) 100 Units/ml Inj SC SCH ×4 (07:38→21:27)
[2018-06-24] MEDS: Enoxaparin 40 mg Syringe SC SCH (08:42)
[2018-06-24] MEDS: Aspirin 325 mg EC Tablets PO SCH (08:42)
[2018-06-24] MEDS: Metoprolol Succinate 100 mg XL Tab PO SCH (08:44)
--- NOTE | 2018-06-24 18:03 | CP.PCM.PN ---
Subjective - Date & Time of Evaluation Date of Evaluation: 06/24/18 Time of Evaluation: 18:01 - Subjective Subjective: Feels good and happy with progress Objective - Vital Signs/Intake and Output Vital Signs (last 24 hours): Temp Pulse Resp BP Pulse Ox 98.4 F 70 19 150/77 98 06/24/18 08:45 06/24/18 08:45 06/24/18 08:45 06/24/18 08:45 06/24/18 08:45 - Medications Medications: Current Medications Acetaminophen (Tylenol 325mg Tab) 650 mg PO Q6H PRN PRN Reason: Pain scale 4-10 Last Admin: 06/22/18 15:02 Dose: 650 mg Amlodipine Besylate (Norvasc) 5 mg PO DAILY [facility] Last Admin: 06/24/18 08:44 Dose: 5 mg Aspirin (Ecotrin) 325 mg PO DAILY [facility] Last Admin: 06/24/18 08:42 Dose: 325 mg Atorvastatin Calcium (Lipitor) 80 mg PO [facility] Last Admin: 06/23/18 21:12 Dose: 80 mg Docusate Sodium (Colace) 100 mg PO BID [facility] Last Admin: 06/24/18 17:11 Dose: 100 mg Enoxaparin Sodium (Lovenox) 40 mg SC DAILY [facility]; Protocol Last Admin: 06/24/18 08:42 Dose: 40 mg Gabapentin (Neurontin) 400 mg PO TID [facility] Last Admin: 06/24/18 17:11 Dose: 400 mg Insulin Detemir (Levemir) 30 units SC [facility] Last Admin: 06/23/18 21:12 Dose: 30 units Insulin Human Lispro (Humalog) 0 units SC [facility]; Protocol Last Admin: 06/24/18 17:13 Dose: 6 units Lactulose (Enulose) 20 gm PO Q12 PRN PRN Reason: for constipation Last Admin: 06/24/18 17:11 Dose: 20 gm Lidocaine (Lidoderm) 1 ea TD DAILY PRN PRN Reason: pain Last Admin: 06/19/18 10:31 Dose: 1 ea Lisinopril (Zestril) 20 mg PO DAILY [facility] Last Admin: 06/24/18 08:43 Dose: 20 mg Metoprolol Succinate (Toprol Xl) 100 mg PO DAILY [facility] Last Admin: 06/24/18 08:44 Dose: 100 mg Tamsulosin HCl (Flomax) 0.4 mg PO DAILY [facility] Last Admin: 06/24/18 08:43 Dose: 0.4 mg - Labs Labs: 06/23/18 05:35 06/23/18 05:35 PT 12.1 Seconds (9.8-13.1) 06/17/18 05:25 INR 1.1 06/17/18 05:25 APTT 32.3 Seconds (25.6-37.1) 06/17/18 05:25 - Constitutional Appears: Well, Non-toxic, No Acute Distress - Head Exam Head Exam: ATRAUMATIC, NORMAL INSPECTION, NORMOCEPHALIC - Eye Exam Eye Exam: EOMI - ENT Exam ENT Exam: Mucous Membranes Moist - Respiratory Exam Respiratory Exam: NORMAL BREATHING PATTERN - GI/Abdominal Exam GI & Abdominal Exam: absent: Distended - Extremities Exam Extremities Exam: absent: Calf Tenderness - Neurological Exam Neurological Exam: Alert, Awake Neuro motor strength exam: Right Upper Extremity: 5, Right Lower Extremity: 5 - Psychiatric Exam Psychiatric exam: Normal Affect, Normal Mood - Skin Skin Exam: Warm Assessment and Plan - Assessment and Plan (Free Text) Assessment: PT/OT to continue to help increase functional independence Pain: controlled Vascular: no evidence of DVT GI: No evidence of constipation or diarrhea Patient continues to be an excellent TCU rehabilitation candidate and will have continued focused PT, OT and recreational therapy to help facilitate a safe and appropriate d/c plan will get x-ray next week for the left shoulder
[2018-06-24] MEDS: Insulin Detemir 100 Units/ml Inj SC SCH (21:22)
--- NOTE | 2018-06-24 23:22 | CP.PCM.PN ---
Subjective - Date & Time of Evaluation Date of Evaluation: 06/23/18 Objective - Vital Signs/Intake and Output Vital Signs (last 24 hours): Temp Pulse Resp BP Pulse Ox 98.4 F 70 19 150/77 98 06/24/18 08:45 06/24/18 08:45 06/24/18 08:45 06/24/18 08:45 06/24/18 08:45 - Medications Medications: Current Medications Acetaminophen (Tylenol 325mg Tab) 650 mg PO Q6H PRN PRN Reason: Pain scale 4-10 Last Admin: 06/22/18 15:02 Dose: 650 mg Amlodipine Besylate (Norvasc) 5 mg PO DAILY [facility] Last Admin: 06/24/18 08:44 Dose: 5 mg Aspirin (Ecotrin) 325 mg PO DAILY [facility] Last Admin: 06/24/18 08:42 Dose: 325 mg Atorvastatin Calcium (Lipitor) 80 mg PO HS [facility] Last Admin: 06/24/18 21:19 Dose: 80 mg Docusate Sodium (Colace) 100 mg PO BID [facility] Last Admin: 06/24/18 17:11 Dose: 100 mg Enoxaparin Sodium (Lovenox) 40 mg SC DAILY [facility]; Protocol Last Admin: 06/24/18 08:42 Dose: 40 mg Gabapentin (Neurontin) 400 mg PO TID [facility] Last Admin: 06/24/18 17:11 Dose: 400 mg Insulin Detemir (Levemir) [address] [facility] Last Admin: 06/24/18 21:22 Dose: 30 units Insulin Human Lispro (Humalog) 0 units SC [facility]; Protocol Last Admin: 06/24/18 21:27 Dose: Not Given Lactulose (Enulose) 20 gm PO Q12 PRN PRN Reason: for constipation Last Admin: 06/24/18 17:11 Dose: 20 gm Lidocaine (Lidoderm) 1 ea TD DAILY PRN PRN Reason: pain Last Admin: 06/19/18 10:31 Dose: 1 ea Lisinopril (Zestril) 20 mg PO DAILY [facility] Last Admin: 06/24/18 08:43 Dose: 20 mg Metoprolol Succinate (Toprol Xl) 100 mg PO DAILY [facility] Last Admin: 06/24/18 08:44 Dose: 100 mg Tamsulosin HCl (Flomax) 0.4 mg PO DAILY [facility] Last Admin: 06/24/18 08:43 Dose: 0.4 mg - Labs Labs: 06/23/18 05:35 06/23/18 05:35 PT 12.1 Seconds (9.8-13.1) 06/17/18 05:25 INR 1.1 06/17/18 05:25 APTT 32.3 Seconds (25.6-37.1) 06/17/18 05:25
--- NOTE | 2018-06-24 23:22 | CP.PCM.PN ---
Subjective - Date & Time of Evaluation Date of Evaluation: 06/24/18 Objective - Vital Signs/Intake and Output Vital Signs (last 24 hours): Temp Pulse Resp BP Pulse Ox 98.4 F 70 19 150/77 98 06/24/18 08:45 06/24/18 08:45 06/24/18 08:45 06/24/18 08:45 06/24/18 08:45 - Medications Medications: Current Medications Acetaminophen (Tylenol 325mg Tab) 650 mg PO Q6H PRN PRN Reason: Pain scale 4-10 Last Admin: 06/22/18 15:02 Dose: 650 mg Amlodipine Besylate (Norvasc) 5 mg PO DAILY [facility] Last Admin: 06/24/18 08:44 Dose: 5 mg Aspirin (Ecotrin) 325 mg PO DAILY [facility] Last Admin: 06/24/18 08:42 Dose: 325 mg Atorvastatin Calcium (Lipitor) 80 mg PO HS [facility] Last Admin: 06/24/18 21:19 Dose: 80 mg Docusate Sodium (Colace) 100 mg PO BID [facility] Last Admin: 06/24/18 17:11 Dose: 100 mg Enoxaparin Sodium (Lovenox) 40 mg SC DAILY [facility]; Protocol Last Admin: 06/24/18 08:42 Dose: 40 mg Gabapentin (Neurontin) 400 mg PO TID [facility] Last Admin: 06/24/18 17:11 Dose: 400 mg Insulin Detemir (Levemir) 30 units SC [facility] Last Admin: 06/24/18 21:22 Dose: 30 units Insulin Human Lispro (Humalog) 0 units SC [facility]; Protocol Last Admin: 06/24/18 21:27 Dose: Not Given Lactulose (Enulose) 20 gm PO Q12 PRN PRN Reason: for constipation Last Admin: 06/24/18 17:11 Dose: 20 gm Lidocaine (Lidoderm) 1 ea TD DAILY PRN PRN Reason: pain Last Admin: 06/19/18 10:31 Dose: 1 ea Lisinopril (Zestril) 20 mg PO DAILY [facility] Last Admin: 06/24/18 08:43 Dose: 20 mg Metoprolol Succinate (Toprol Xl) 100 mg PO DAILY [facility] Last Admin: 06/24/18 08:44 Dose: 100 mg Tamsulosin HCl (Flomax) 0.4 mg PO DAILY [facility] Last Admin: 06/24/18 08:43 Dose: 0.4 mg - Labs Labs: 06/23/18 05:35 06/23/18 05:35 PT 12.1 Seconds (9.8-13.1) 06/17/18 05:25 INR 1.1 06/17/18 05:25 APTT 32.3 Seconds (25.6-37.1) 06/17/18 05:25
[2018-06-25] MEDS: Insulin Lispro (humaLOG) 100 Units/ml Inj SC SCH ×4 (07:38→21:37)
[2018-06-25] MEDS: Aspirin 325 mg EC Tablets PO SCH (09:08)
[2018-06-25] MEDS: Enoxaparin 40 mg Syringe SC SCH (09:08)
[2018-06-25] MEDS: Metoprolol Succinate 100 mg XL Tab PO SCH (09:09)
--- NOTE | 2018-06-25 16:22 | CP.PCM.PN ---
Subjective - Date & Time of Evaluation Date of Evaluation: 06/25/18 Objective - Vital Signs/Intake and Output Vital Signs (last 24 hours): Temp Pulse Resp BP Pulse Ox 98.1 F 73 20 157/81 H 98 06/25/18 10:00 06/25/18 10:00 06/25/18 10:00 06/25/18 10:00 06/25/18 10:00 - Medications Medications: Current Medications Acetaminophen (Tylenol 325mg Tab) 650 mg PO Q6H PRN PRN Reason: Pain scale 4-10 Last Admin: 06/25/18 00:44 Dose: 650 mg Amlodipine Besylate (Norvasc) 5 mg PO DAILY [facility] Last Admin: 06/25/18 09:10 Dose: 5 mg Aspirin (Ecotrin) 325 mg PO DAILY [facility] Last Admin: 06/25/18 09:08 Dose: 325 mg Atorvastatin Calcium (Lipitor) 80 mg PO HS [facility] Last Admin: 06/24/18 21:19 Dose: 80 mg Docusate Sodium (Colace) 100 mg PO BID [facility] Last Admin: 06/25/18 09:07 Dose: 100 mg Enoxaparin Sodium (Lovenox) 40 mg SC DAILY [facility]; Protocol Last Admin: 06/25/18 09:08 Dose: 40 mg Gabapentin (Neurontin) 400 mg PO TID [facility] Last Admin: 06/25/18 12:48 Dose: 400 mg Insulin Detemir (Levemir) 30 units SC [facility] Last Admin: 06/24/18 21:22 Dose: 30 units Insulin Human Lispro (Humalog) 0 units SC [facility]; Protocol Last Admin: 06/25/18 11:34 Dose: 8 units Lactulose (Enulose) 20 gm PO Q12 PRN PRN Reason: for constipation Last Admin: 06/24/18 17:11 Dose: 20 gm Lidocaine (Lidoderm) 1 ea TD DAILY PRN PRN Reason: pain Last Admin: 06/19/18 10:31 Dose: 1 ea Lisinopril (Zestril) 20 mg PO DAILY [facility] Last Admin: 06/25/18 09:09 Dose: 20 mg Metoprolol Succinate (Toprol Xl) 100 mg PO DAILY [facility] Last Admin: 06/25/18 09:09 Dose: 100 mg Tamsulosin HCl (Flomax) 0.4 mg PO DAILY [facility] Last Admin: 06/25/18 09:08 Dose: 0.4 mg - Labs Labs: 06/23/18 05:35 06/23/18 05:35 PT 12.1 Seconds (9.8-13.1) 06/17/18 05:25 INR 1.1 06/17/18 05:25 APTT 32.3 Seconds (25.6-37.1) 06/17/18 05:25 Assessment and Plan (1) Acute right MCA stroke Status: Acute (2) Left hemiplegia Status: Acute (3) Fracture of neck of left humerus Status: Acute (4) Recurrent falls Status: Acute
[2018-06-25] MEDS: Insulin Detemir 100 Units/ml Inj SC SCH (21:35)
[2018-06-26] MEDS: Insulin Lispro (humaLOG) 100 Units/ml Inj SC SCH ×4 (07:32→21:33)
[2018-06-26 08:29] LABS: BLOOD UREA NITROGEN 19 mg/dl (9-20); CALCIUM 9.7 mg/dL (8.4-10.2); GFR NON-AFRICAN AMERICAN > 60
[2018-06-26] MEDS: Metoprolol Succinate 100 mg XL Tab PO SCH (08:29)
[2018-06-26] MEDS: Aspirin 325 mg EC Tablets PO SCH (08:30)
[2018-06-26] MEDS: Enoxaparin 40 mg Syringe SC SCH (08:31)
[2018-06-26 10:09] LABS: HEMOGLOBIN 13.2 g/dL (12.0-18.0); MEAN CELL VOLUME 86.7 fl (80.0-94.0); MEAN CORPUSCULAR HEMOGLOBIN 28.2 pg (27.0-31.0); MEAN CORPUSCULAR HGB CONC 32.6 g/dL (33.0-37.0); RBC 4.68 Mil/uL (4.40-5.90); RED CELL DISTRIBUTION WIDTH 14.6 % (11.5-14.5); WHITE BLOOD COUNT 7.4 K/uL (4.8-10.8)
[2018-06-26] MEDS: Insulin Detemir 100 Units/ml Inj SC SCH (21:25)
--- NOTE | 2018-06-27 04:29 | CP.PCM.PN ---
Subjective - Date & Time of Evaluation Date of Evaluation: 06/26/18 Objective - Vital Signs/Intake and Output Vital Signs (last 24 hours): Temp Pulse Resp BP Pulse Ox 97 F L 69 20 145/78 96 06/26/18 21:00 06/26/18 21:00 06/26/18 21:00 06/26/18 21:00 06/26/18 21:00 - Medications Medications: Current Medications Acetaminophen (Tylenol 325mg Tab) 650 mg PO Q6H PRN PRN Reason: Pain scale 4-10 Last Admin: 06/25/18 00:44 Dose: 650 mg Amlodipine Besylate (Norvasc) 5 mg PO DAILY [facility] Last Admin: 06/26/18 08:31 Dose: 5 mg Aspirin (Ecotrin) 325 mg PO DAILY [facility] Last Admin: 06/26/18 08:30 Dose: 325 mg Atorvastatin Calcium (Lipitor) 80 mg PO HS [facility] Last Admin: 06/26/18 21:24 Dose: 80 mg Docusate Sodium (Colace) 100 mg PO BID [facility] Last Admin: 06/26/18 16:52 Dose: 100 mg Enoxaparin Sodium (Lovenox) 40 mg SC DAILY [facility]; Protocol Last Admin: 06/26/18 08:31 Dose: 40 mg Gabapentin (Neurontin) 400 mg PO TID [facility] Last Admin: 06/26/18 16:54 Dose: 400 mg Insulin Detemir (Levemir) 30 units SC [facility] Last Admin: 06/26/18 21:25 Dose: 30 units Insulin Human Lispro (Humalog) 0 units SC [facility]; Protocol Last Admin: 06/26/18 21:33 Dose: Not Given Lactulose (Enulose) 20 gm PO Q12 PRN PRN Reason: for constipation Last Admin: 06/26/18 16:53 Dose: 20 gm Lidocaine (Lidoderm) 1 ea TD DAILY PRN PRN Reason: pain Last Admin: 06/19/18 10:31 Dose: 1 ea Lisinopril (Zestril) 20 mg PO DAILY [facility] Last Admin: 06/26/18 08:30 Dose: 20 mg Metformin HCl (Glucophage) 500 mg PO BIDWM [facility] Last Admin: 06/26/18 16:53 Dose: 500 mg Metoprolol Succinate (Toprol Xl) 100 mg PO DAILY [facility] Last Admin: 06/26/18 08:29 Dose: 100 mg Tamsulosin HCl (Flomax) 0.4 mg PO DAILY [facility] Last Admin: 06/26/18 08:30 Dose: 0.4 mg - Labs Labs: 06/26/18 07:00 06/26/18 07:00 PT 12.1 Seconds (9.8-13.1) 06/17/18 05:25 INR 1.1 06/17/18 05:25 APTT 32.3 Seconds (25.6-37.1) 06/17/18 05:25 Assessment and Plan (1) Acute right MCA stroke Status: Acute (2) Left hemiplegia Status: Acute (3) Fracture of neck of left humerus Status: Acute (4) Recurrent falls Status: Acute
[2018-06-27] MEDS: Insulin Lispro (humaLOG) 100 Units/ml Inj SC SCH ×4 (07:44→21:33)
[2018-06-27] MEDS: Enoxaparin 40 mg Syringe SC SCH (08:35)
[2018-06-27] MEDS: Aspirin 325 mg EC Tablets PO SCH (08:35)
[2018-06-27] MEDS: Metoprolol Succinate 100 mg XL Tab PO SCH (08:36)
--- NOTE | 2018-06-27 09:17 | CP.PCM.PN ---
Subjective - Date & Time of Evaluation Date of Evaluation: 06/27/18 Time of Evaluation: 09:17 - Subjective Subjective: Estuardo Aguilar, born 1945, who has been admitted to [facility] for acute inpatient rehabilitation Left HD male. Right CVA with dense left HP. Also left greater tuberosity fracture. Treated non-operatively. In sling and NWB on the left UE through the shoulder X-ray to be done this week. Objective - Vital Signs/Intake and Output Vital Signs (last 24 hours): Temp Pulse Resp BP Pulse Ox 97 F L 74 20 156/90 H 96 06/26/18 21:00 06/27/18 08:36 06/26/18 21:00 06/27/18 08:36 06/26/18 21:00 - Medications Medications: Current Medications Acetaminophen (Tylenol 325mg Tab) 650 mg PO Q6H PRN PRN Reason: Pain scale 4-10 Last Admin: 06/25/18 00:44 Dose: 650 mg Amlodipine Besylate (Norvasc) 5 mg PO DAILY [facility] Last Admin: 06/27/18 08:34 Dose: 5 mg Aspirin (Ecotrin) 325 mg PO DAILY [facility] Last Admin: 06/27/18 08:35 Dose: 325 mg Atorvastatin Calcium (Lipitor) 80 mg PO HS [facility] Last Admin: 06/26/18 21:24 Dose: 80 mg Docusate Sodium (Colace) 100 mg PO BID [facility] Last Admin: 06/27/18 08:33 Dose: 100 mg Enoxaparin Sodium (Lovenox) 40 mg SC DAILY [facility]; Protocol Last Admin: 06/27/18 08:35 Dose: 40 mg Gabapentin (Neurontin) 400 mg PO TID [facility] Last Admin: 06/27/18 08:35 Dose: 400 mg Insulin Detemir (Levemir) [address] [facility] Last Admin: 06/26/18 21:25 Dose: 30 units Insulin Human Lispro (Humalog) 0 units SC [facility]; Protocol Last Admin: 06/27/18 07:44 Dose: 4 units Lactulose (Enulose) 20 gm PO Q12 PRN PRN Reason: for constipation Last Admin: 06/26/18 16:53 Dose: 20 gm Lidocaine (Lidoderm) 1 ea TD DAILY PRN PRN Reason: pain Last Admin: 06/19/18 10:31 Dose: 1 ea Lisinopril (Zestril) 20 mg PO DAILY [facility] Last Admin: 06/27/18 08:35 Dose: 20 mg Metformin HCl (Glucophage) 500 mg PO BIDWM [facility] Last Admin: 06/27/18 08:35 Dose: 500 mg Metoprolol Succinate (Toprol Xl) 100 mg PO DAILY [facility] Last Admin: 06/27/18 08:36 Dose: 100 mg Tamsulosin HCl (Flomax) 0.4 mg PO DAILY [facility] Last Admin: 06/27/18 08:36 Dose: 0.4 mg - Labs Labs: 06/26/18 07:00 06/26/18 07:00 PT 12.1 Seconds (9.8-13.1) 06/17/18 05:25 INR 1.1 06/17/18 05:25 APTT 32.3 Seconds (25.6-37.1) 06/17/18 05:25 - Constitutional Appears: Non-toxic - Head Exam Head Exam: ATRAUMATIC, NORMAL INSPECTION, NORMOCEPHALIC - Eye Exam Eye Exam: EOMI - ENT Exam ENT Exam: Mucous Membranes Moist - Respiratory Exam Respiratory Exam: NORMAL BREATHING PATTERN - Cardiovascular Exam Cardiovascular Exam: REGULAR RHYTHM - GI/Abdominal Exam GI & Abdominal Exam: Soft. absent: Tenderness - Extremities Exam Extremities Exam: absent: Calf Tenderness - Neurological Exam Neurological Exam: Alert Neuro motor strength exam: Left Upper Extremity: 0, Right Upper Extremity: 5, Left Lower Extremity: 2/1 (+ neglect moves right foot instead of left and even said he couldn't move this foot before ), Right Lower Extremity: 5 - Psychiatric Exam Psychiatric exam: Flat Affect - Skin Skin Exam: Warm Assessment and Plan - Assessment and Plan (Free Text) Assessment: PT/OT to continue to help increase functional independence Team conference for d/c planning Pain: controlled Vascular: no evidence of DVT GI: No evidence of constipation or diarrhea Patient continues to be an excellent acute rehabilitation candidate and will have continued focused speech, PT, OT and recreational therapy to help facilitate a safe and appropriate d/c plan
--- NOTE | 2018-06-27 14:31 | CP.PCM.PN ---
Subjective - Date & Time of Evaluation Date of Evaluation: 06/27/18 Objective - Vital Signs/Intake and Output Vital Signs (last 24 hours): Temp Pulse Resp BP Pulse Ox 97.7 F 74 20 156/90 H 97 06/27/18 09:34 06/27/18 09:34 06/27/18 09:34 06/27/18 09:34 06/27/18 09:34 - Medications Medications: Current Medications Acetaminophen (Tylenol 325mg Tab) 650 mg PO Q6H PRN PRN Reason: Pain scale 4-10 Last Admin: 06/25/18 00:44 Dose: 650 mg Amlodipine Besylate (Norvasc) 5 mg PO DAILY [facility] Last Admin: 06/27/18 08:34 Dose: 5 mg Aspirin (Ecotrin) 325 mg PO DAILY [facility] Last Admin: 06/27/18 08:35 Dose: 325 mg Atorvastatin Calcium (Lipitor) 80 mg PO HS [facility] Last Admin: 06/26/18 21:24 Dose: 80 mg Docusate Sodium (Colace) 100 mg PO BID [facility] Last Admin: 06/27/18 08:33 Dose: 100 mg Enoxaparin Sodium (Lovenox) 40 mg SC DAILY [facility]; Protocol Last Admin: 06/27/18 08:35 Dose: 40 mg Gabapentin (Neurontin) 400 mg PO TID [facility] Last Admin: 06/27/18 12:30 Dose: 400 mg Insulin Detemir (Levemir) 30 units SC [facility] Last Admin: 06/26/18 21:25 Dose: 30 units Insulin Human Lispro (Humalog) 0 units SC [facility]; Protocol Last Admin: 06/27/18 12:31 Dose: 6 units Lactulose (Enulose) 20 gm PO Q12 PRN PRN Reason: for constipation Last Admin: 06/26/18 16:53 Dose: 20 gm Lidocaine (Lidoderm) 1 ea TD DAILY PRN PRN Reason: pain Last Admin: 06/19/18 10:31 Dose: 1 ea Lisinopril (Zestril) 20 mg PO DAILY [facility] Last Admin: 06/27/18 08:35 Dose: 20 mg Metformin HCl (Glucophage) 500 mg PO BIDWM [facility] Last Admin: 06/27/18 08:35 Dose: 500 mg Metoprolol Succinate (Toprol Xl) 100 mg PO DAILY [facility] Last Admin: 06/27/18 08:36 Dose: 100 mg Tamsulosin HCl (Flomax) 0.4 mg PO DAILY [facility] Last Admin: 06/27/18 08:36 Dose: 0.4 mg - Labs Labs: 06/26/18 07:00 06/26/18 07:00 PT 12.1 Seconds (9.8-13.1) 06/17/18 05:25 INR 1.1 06/17/18 05:25 APTT 32.3 Seconds (25.6-37.1) 06/17/18 05:25 Assessment and Plan (1) Acute right MCA stroke Status: Acute (2) Left hemiplegia Status: Acute (3) Fracture of neck of left humerus Status: Acute (4) Recurrent falls Status: Acute
[2018-06-27] MEDS: Insulin Detemir 100 Units/ml Inj SC SCH (21:34)
[2018-06-28] MEDS: Insulin Lispro (humaLOG) 100 Units/ml Inj SC SCH ×4 (07:37→21:13)
[2018-06-28] MEDS: Metoprolol Succinate 100 mg XL Tab PO SCH (08:11)
[2018-06-28] MEDS: Aspirin 325 mg EC Tablets PO SCH (08:13)
[2018-06-28] MEDS: Enoxaparin 40 mg Syringe SC SCH (08:14)
--- NOTE | 2018-06-28 16:30 | CP.PCM.PN ---
Subjective - Date & Time of Evaluation Date of Evaluation: 06/28/18 Time of Evaluation: 16:28 - Subjective Subjective: Estuardo Aguilar, born 1945, who has been admitted to [facility] for acute inpatient rehabilitation Left HD male. Right CVA with dense left HP. Also left greater tuberosity fracture. Treated non-operatively. In sling and NWB on the left UE through the shoulder X-ray to be done this week. Seen in therapy, + left arm sling in place. Objective - Vital Signs/Intake and Output Vital Signs (last 24 hours): Temp Pulse Resp BP Pulse Ox 97.3 F L 65 18 155/83 H 97 06/28/18 09:18 06/28/18 09:18 06/28/18 09:18 06/28/18 09:18 06/28/18 09:18 - Medications Medications: Current Medications Acetaminophen (Tylenol 325mg Tab) 650 mg PO Q6H PRN PRN Reason: Pain scale 4-10 Last Admin: 06/28/18 08:19 Dose: 650 mg Amlodipine Besylate (Norvasc) 5 mg PO DAILY [facility] Last Admin: 06/28/18 08:50 Dose: 5 mg Aspirin (Ecotrin) 325 mg PO DAILY [facility] Last Admin: 06/28/18 08:13 Dose: 325 mg Atorvastatin Calcium (Lipitor) 80 mg PO HS [facility] Last Admin: 06/27/18 21:22 Dose: 80 mg Docusate Sodium (Colace) 100 mg PO BID [facility] Last Admin: 06/28/18 08:12 Dose: 100 mg Enoxaparin Sodium (Lovenox) 40 mg SC DAILY [facility]; Protocol Last Admin: 06/28/18 08:14 Dose: 40 mg Gabapentin (Neurontin) 400 mg PO TID [facility] Last Admin: 06/28/18 12:24 Dose: 400 mg Insulin Detemir (Levemir) 30 units SC HS [facility] Last Admin: 06/27/18 21:34 Dose: 30 units Insulin Human Lispro (Humalog) 0 units SC [facility]; Protocol Last Admin: 06/28/18 12:00 Dose: 8 units Lactulose (Enulose) 20 gm PO Q12 PRN PRN Reason: for constipation Last Admin: 06/28/18 08:13 Dose: 20 gm Lidocaine (Lidoderm) 1 ea TD DAILY PRN PRN Reason: pain Last Admin: 06/19/18 10:31 Dose: 1 ea Lisinopril (Zestril) 20 mg PO DAILY [facility] Last Admin: 06/28/18 08:12 Dose: 20 mg Metformin HCl (Glucophage) 500 mg PO BIDWM [facility] Last Admin: 06/28/18 08:12 Dose: 500 mg Metoprolol Succinate (Toprol Xl) 100 mg PO DAILY [facility] Last Admin: 06/28/18 08:11 Dose: 100 mg Tamsulosin HCl (Flomax) 0.4 mg PO DAILY [facility] Last Admin: 06/28/18 08:14 Dose: 0.4 mg - Labs Labs: 06/26/18 07:00 06/26/18 07:00 PT 12.1 Seconds (9.8-13.1) 06/17/18 05:25 INR 1.1 06/17/18 05:25 APTT 32.3 Seconds (25.6-37.1) 06/17/18 05:25 - Constitutional Appears: Well, Non-toxic, No Acute Distress - Head Exam Head Exam: ATRAUMATIC, NORMAL INSPECTION, NORMOCEPHALIC - Eye Exam Eye Exam: EOMI - ENT Exam ENT Exam: Mucous Membranes Moist - Respiratory Exam Respiratory Exam: NORMAL BREATHING PATTERN - Cardiovascular Exam Cardiovascular Exam: REGULAR RHYTHM - Extremities Exam Extremities Exam: absent: Calf Tenderness - Neurological Exam Neurological Exam: Alert Neuro motor strength exam: Left Upper Extremity: 0, Right Upper Extremity: 5, Left Lower Extremity: 2/1, Right Lower Extremity: 5 - Psychiatric Exam Psychiatric exam: Normal Affect, Normal Mood Assessment and Plan - Assessment and Plan (Free Text) Assessment: 72 year old right CVA left HP Also left greater tuberosity fracture. Treated non-operatively. In sling and NWB on the left UE through the shoulder X-ray to be done this week. PT/OT to continue to help increase functional independence Team conference for d/c planning Pain: controlled Vascular: no evidence of DVT GI: No evidence of constipation or diarrhea Patient continues to be an excellent acute rehabilitation candidate and will have continued focused speech, PT, OT and recreational therapy to help facilitate a safe and appropriate d/c plan
[2018-06-28] MEDS: Insulin Detemir 100 Units/ml Inj SC SCH (21:11)
[2018-06-29 06:35] LABS: MEAN CELL VOLUME 86.7 fl (80.0-94.0); MEAN CORPUSCULAR HEMOGLOBIN 28.2 pg (27.0-31.0); MEAN CORPUSCULAR HGB CONC 32.5 g/dL (33.0-37.0); RBC 4.63 Mil/uL (4.40-5.90); WHITE BLOOD COUNT 7.7 K/uL (4.8-10.8)
[2018-06-29 06:49] LABS: BLOOD UREA NITROGEN 19 mg/dl (9-20); CALCIUM 9.4 mg/dL (8.4-10.2); GFR NON-AFRICAN AMERICAN > 60
[2018-06-29] MEDS: Insulin Lispro (humaLOG) 100 Units/ml Inj SC SCH ×4 (07:04→21:19)
[2018-06-29] MEDS: Aspirin 325 mg EC Tablets PO SCH (08:17)
[2018-06-29] MEDS: Metoprolol Succinate 100 mg XL Tab PO SCH (08:18)
[2018-06-29] MEDS: Enoxaparin 40 mg Syringe SC SCH (08:20)
--- NOTE | 2018-06-29 13:15 | PCM.PSYTMC ---
Acute Rehab Team Conference - - Vital Signs: Vital Signs (Last 8 Hours): Vital Signs 06/29/18 06/29/18 06/29/18 08:09 08:18 08:19 Temperature 97.5 F L Pulse Rate 72 72 72 Respiratory 20 Rate Blood Pressure 120/80 120/80 120/80 O2 Sat by Pulse 96 Oximetry Pain: 0 - Precautions: Precautions: Fall Prevention, Aspiration - Medications/Other Issues: Comment: -Uncontrolled diabetes - Levemir 30 units at bedtime and Glucophage 500mg BIDWM. -Right eye blindness. -Left shoulder fracture - NWB - on a sling - Consults: Comment: -Dr. Li - Physiatry - Skin: Incision Site: n/a - Toileting: Toileting: Maximal Assistance - Bladder Management: Bladder Pattern: Normal Voiding Method: Toilet, Urinal Bladder Management: Minimal Assistance Other Intervention:: Spills - Transfers: Transfers: Maximal Assistance - ADL's: ADL's: Moderate Assistance - Pain Management: Other Intervention:: Tylenol 650 mg PRN pain scale 4-10 - Patient/Family Teaching: Other Intervention:: -Reorient patient frequently. -Teach patient about safety precautions and diagnosis. - Goals/Time Frame: Comment: Keep patient safe and well informed until next team conference or discharge date. - Provider: Registered Nurse:: Jaimie Ocampo Physical Therapy - Bed Mobility Bed Mobility: Verbal Cues, Minimal Assistance, Moderate Assistance - Transfers Wheelchair to Mat: Verbal Cues, Maximum Assistance Sit to Stand: Verbal Cues, Minimal Assistance, Moderate Assistance - Ambulation Level of Assistance: Maximum Assistance Distance (ft.): 8 Assistive Devices: Augustine Walker Orthoses: L DF wrap Comment: -8-9 feet with platform weight bearing on RUE with platform attached to augustine-walker. -mirror feedback anterior to patient for feedback and close WC follow for safety. -LLE dorsiflexion wrap utilized. -mod A for postural control and to initiate LLE step. -max A for weight shifting during sequencing and to facilitate upright extension. -patient with impaired sequencing requiring step by step cueing to sequence LEs; patient with tendency to lead with RLE and then use step to pattern with LLE moving to same place as RLE. - patient with tendency for very narrow base of support requiring assistance to shift RLE towards right side to prevent rightwards leaning with feet to left of midline and shoulders to right on midline. -impaired ability to recognize deficits with mirror requiring maximal assistance for motor control and sequencing. -x 4 reps with seated rest break between trials. -requires assist of 2nd person to initiate LLE and manage WC (PT assistance on R side to manage midline control and augustine-walker motion) - Stair Negotiation Stairs: Level of Assistance: Not Tested - Standing Balance Static Stand: Moderate Assistance Comment: RUE platform on hemiwalker. mirror feedback - Pain Pain (assessed during therapy session): 0 Alleviating Techniques: Position Change, Distraction, Relaxation Techniques Comment: pt denies pain - Insight/Carryover Insight/Carryover: Fair - Patient/Family Education Comment: safety, therapy schedule, therapy goals, mobility, POC, stroke recovery, attention to task, discharge plan - Assessment/Plan Assessment: Mr. Aguilar continues to make good progress in therapy. Patient is able to attend to left side with improvement with tactile, verbal and visual cueing. Patient able to ambulate today without use of air-cast, with reduced assistance on L side and increased active participation. Patient has much improved midline control and is able to transfer sit to/from stand with min to mod A which is large improvement from max A of 2 for sit to/from stand transfers. Patient continues to be limited by attention, left sided inattention, visual changes, impaired midline, impaired postural control, L sided weakness and behavior. Pt has made good progress in therapy and PT recommends continued SKILLED therapy in the acute rehab setting to continue addressing deficits s/p CVA. Pt will benefit from discharge to [facility] upon completion of full length of stay as patient will continue to require skilled rehabilitation and medical intervention with emphasis on reduction of burden of care s/p CVA. - Goals Timeframe: 7 days Goals: Mr. Aguilar will complete the following with in 7 days: -perform rolling with min A. -perform supine to/from sit with CS. -perform sit to/from stand with with CG with R sided device. -perform stand pivot transfer with mod A without device. -ambulate 25 feet with R sided device with mod A - Provider Physical Therapist:: Alize Whitfield License Number:: [id number] Occupational Therapy - Arousal/Attention/Orientation Level of Consciousness: Awake, Alert Patient Orientation: Person, Place, Time, Appropriate to Age, Appropriate to Situation - ADL/IADL Self Feeding: Supervision, Verbal Cues, Set-up Help Grooming: Verbal Cues, Set-up Help, Minimal Assistance Bathing-Upper Ext: Verbal Cues, Set-up Help, Moderate Assistance Bathing-Lower Ext: Verbal Cues, Set-up Help, Maximum Assistance Dressing-Upper Ext: Verbal Cues, Set-up Help, Moderate Assistance, Maximum Assistance Dressing-Lower Ext: Verbal Cues, Set-up Help, Maximum Assistance - Sitting Balance Static Sitting: Supervision Dynamic Sitting: Reaches across midline, Reaches out of base of support, Reaches within base of support, Minimal Assistance Comment: seated unsupported in bed - Transfers Wheelchair to Bed Transfers: Verbal Cues, Set-up Help, Moderate Assistance, Maximum Assistance Toilet Transfers: Verbal Cues, Set-up Help, Moderate Assistance, Maximum Assistance Comment: shower transfers: max assist and verbal cues to transfer bench - Wheelchair Management Level of Assistance: Moderate Assistance Distance (ft.): 150 - Upper Extremity Status Right Upper Extremity Comment: AROM is WNLS Left Upper Extremity Comment: L shoulder immobilized by sling; NO PROM TO L SHOULDER. No active ROM noted in L elbow, L forearm, L wrist or digits at this time - Pain Pain (assessed during therapy session): 0 Comment: no c/o of L shoulder pain today - Insight/Carryover Insight/Carryover: Fair - Patient/Family Education Comment: -initiated for adls, transfers, w/c management, mobility using adaptive/compensatory strategies. -LUE immobilization. -bed/w/c positioning. -encourage adl, transfers/mobility& OOB activities. -pt needs additional training to increase carryover. review progress, OT/rehab goals - Assessment/Plan Assessment: Pt is a 72 year old L handed bilingual male with dx: acute CVA, L shoulder fx.. Precautions: LUE-NWB, R eye blindness([employer] per family post surgery), falls, cardiac, L shoulder immobilized by sling at all times /shoulder fx--NO ROM, w/c seatbelt alarm(self release), fall precautions, no PROM to L shoulder. Pt continues to limited by L visual inattention, R eye blindness, impaired sustained/selective attention, impaired insight, impaired postural control sitting/standing, impaired activity tolerance/endurance---which all impact on progress in self care, w/c propulsion, transfers & mobility and Iadls. Pt will continue to benefit skilled occupational therapy/acute rehab services to further address impairments to maximze function in self care, transfers & mobility using adaptive/compensatory strategies. Pt demonstrates increase sitting/standing balance, sit<->stand, bed mobility, upper/lower body dressing and bathing status. Pt needs less verbal cues to attend to L side. Pt has LESS pain in LUE today thus better able to attend to functional tasks. AFTER acute rehab stay, pt will likely need DARELL 2' extent & number of functional impairments(visual, physical and cognitive). Pt motivated to participate therapy activities. *Goal: min/mod assist and verbal cues for transfers/lower body self care and upper body self care tasks using adaptive/compensatory strategies/devices prn. [ End ] - Goals Timeframe: 8 days Comment: *FEEDING: DS/setup. *GROOMING: S/setup. *UPPER BODY DRESSING: Mod assist and verbal cues augustine-techniques 100 of time. *LOWER BODY DRESSING: Mod assist and verbal cues with assistive device prn, augustine-techniques--long sitting in bed. *W/C MANAGEMENT/PROPULSION: Min assist and verbal cues to propel w/c using RUE to push/RLE to steer 150 feet. *BATHING: moderate assist and verbal cues seated. *LUE STRENGTH: increase to 2-/5 so can use as stabilizer - Provider Occupational Therapist:: Mikaela Elizalde License Number: [id number] Speech Therapy - Consult Information Patient on Program: Yes Medical Diagnosis: CVA Treatment Diagnosis: Cognitive communication impairment - Assessment Problem Solving Impairment: Moderate Memory Impairment: Moderate - Plan Assessment: Mr Souza currently presents with a moderate cognitive communication deficit characterized by difficulty in the areas of sustained attention, basic sequencing, and immedate/delayed recall. He has improve his orientation and basic ADL safety awareness skills. Plan: Continue Speech/Language Therapy Frequency: 3-5 times per week Duration: 1 week - Provider Therapist: Marya Rodriguez License Number: [id number] Recreational Therapy - Participation Participation: Participates in Individual and/or Group Sessions - Attendance Attendance: 3-5 times per week - Activities Leisure Activities: Cards and Games - Socialization Level of Socialization: Initiates/interacts freely with care givers and peer - Assessment Assessment/Plan: Pt is agreeable to participate in 1:1 and group recreation therapy sessions throughout stay on unit. Pt requires mod-max A throughout all leisure tasks 2' requiring max verbal cues for redirection to task, error recognition, visual awareness to the L side of tasks, and overall [id number] command following. Pt does better with tasks as he is fatigued and less distracted. Barriers to participation include poor attention to task and poor c arryover of task rules or commands. Will continue to encourage pt to participate in sessions throughout stay on unit. Problems Currently Limiting Participation: decrease attention to task, L side visual neglect, decrease safety awareness, impaired direction following, pain, L UE sling at all times Goals and Time Frame: Pt will participate in a 30 minute tabletop leisure task without any verbal cues for redirection to task or turn taking by date of discharge. - Provider Therapist: Kelley Kaplan Nutrition - Current Diet Current Diet/Supplement/Feedings: Moderate consistent CHO 2 gram Na low fat/low cholesterol diet - Appetite Percent Meal Consumed: 75-100% - Assessment/Goals/Time Frame Assessments/Goals/Time Frame: Pt at moderate nutritional risk. goals: 1. Pt to consume 75-100% of meals(not met, continue). 2 Blood glucoses to be between in 70-180 mg/dl(not met,continue). Follow-up due on 07/03/2018 - Provider Provider: Olga Freitas Case Management - Psychosocial Assessment Support Systems: Dasha Aguilar (ex-spouse)- [phone] Psychological Interventions/Needs: Patient is AAO with some intermittent confusion/forgetfulness. Patient able to verbalize needs. Discharge Concerns: Patient lives alone in a senior building. While patient's ex- who is supportive lives in the same building, he has his own separate apartment. Patient still max A for ambulation. Patient/Family Meeting: CM met with patient and rehab team. Intervention/Goal/Outcome: 1. Goal: mod I/min A 2. Plan: DARELL 3. Initiate formal referral to [facility] 4. follow up with [facility] regarding patient's continued auth and requests to maximize skillled acute rehab before initiating auth for DARELL level of care 5. continued emotional support 6. continued family discussions/support to encourage planning for patient's post-DARELL set up - Discharge Plan Discharge Plan: Subacute care - Provider Provider: Nichole Patel License Number: [id number] Rehabilitation Plan - Treatment Plan Treatment Plan: Physical Therapy, Occupational Therapy, Speech, Dietary, Patient/Family Education - Discharge Plan Estimated Date of Discharge: 07/09/18 Discharge to: Subacute Comment: Patient still making progress which will directly impact on his ability to participate in therapies in the [facility] environment
--- NOTE | 2018-06-29 13:39 | CP.PCM.PN ---
Subjective - Date & Time of Evaluation Date of Evaluation: 06/29/18 Time of Evaluation: 13:36 - Subjective Subjective: Estuardo Aguilar, born 1945, who has been admitted to [facility] for acute inpatient rehabilitation Left HD male. Right CVA with dense left HP. Also left greater tuberosity fracture. Treated non-operatively. In sling and NWB on the left UE through the shoulder X-ray to be done tomorrow Seen in room with son present Objective - Vital Signs/Intake and Output Vital Signs (last 24 hours): Temp Pulse Resp BP Pulse Ox 97.5 F L 72 20 120/80 96 06/29/18 08:09 06/29/18 08:19 06/29/18 08:09 06/29/18 08:19 06/29/18 08:09 - Medications Medications: Current Medications Acetaminophen (Tylenol 325mg Tab) 650 mg PO Q6H PRN PRN Reason: Pain scale 4-10 Last Admin: 06/28/18 08:19 Dose: 650 mg Amlodipine Besylate (Norvasc) 5 mg PO DAILY [facility] Last Admin: 06/29/18 08:19 Dose: 5 mg Aspirin (Ecotrin) 325 mg PO DAILY [facility] Last Admin: 06/29/18 08:17 Dose: 325 mg Atorvastatin Calcium (Lipitor) 80 mg PO HS [facility] Last Admin: 06/28/18 21:11 Dose: 80 mg Docusate Sodium (Colace) 100 mg PO BID [facility] Last Admin: 06/29/18 08:17 Dose: 100 mg Enoxaparin Sodium (Lovenox) 40 mg SC DAILY [facility]; Protocol Last Admin: 06/29/18 08:20 Dose: 40 mg Gabapentin (Neurontin) 400 mg PO TID [facility] Last Admin: 06/29/18 12:03 Dose: 400 mg Insulin Detemir (Levemir) 30 units SC HS [facility] Last Admin: 06/28/18 21:11 Dose: 30 units Insulin Human Lispro (Humalog) 0 units SC [facility]; Protocol Last Admin: 06/29/18 12:02 Dose: 4 units Lactulose (Enulose) 20 gm PO Q12 PRN PRN Reason: for constipation Last Admin: 06/29/18 08:18 Dose: 20 gm Lidocaine (Lidoderm) 1 ea TD DAILY PRN PRN Reason: pain Last Admin: 06/19/18 10:31 Dose: 1 ea Lisinopril (Zestril) 20 mg PO DAILY [facility] Last Admin: 06/29/18 08:19 Dose: 20 mg Metformin HCl (Glucophage) 500 mg PO BIDWM [facility] Last Admin: 06/29/18 08:18 Dose: 500 mg Metoprolol Succinate (Toprol Xl) 100 mg PO DAILY [facility] Last Admin: 06/29/18 08:18 Dose: 100 mg Tamsulosin HCl (Flomax) 0.4 mg PO DAILY [facility] Last Admin: 06/29/18 08:18 Dose: 0.4 mg - Labs Labs: 06/29/18 05:15 06/29/18 05:15 PT 12.1 Seconds (9.8-13.1) 06/17/18 05:25 INR 1.1 06/17/18 05:25 APTT 32.3 Seconds (25.6-37.1) 06/17/18 05:25 - Constitutional Appears: Well, Non-toxic, No Acute Distress - Head Exam Head Exam: ATRAUMATIC, NORMAL INSPECTION, NORMOCEPHALIC - Eye Exam Eye Exam: EOMI - ENT Exam ENT Exam: Mucous Membranes Moist - Respiratory Exam Respiratory Exam: NORMAL BREATHING PATTERN - Cardiovascular Exam Cardiovascular Exam: REGULAR RHYTHM - GI/Abdominal Exam GI & Abdominal Exam: absent: Distended, Guarding - Neurological Exam Neurological Exam: Alert Neuro motor strength exam: Left Upper Extremity: 0, Right Upper Extremity: 5, Left Lower Extremity: 2/1, Right Lower Extremity: 5 - Psychiatric Exam Psychiatric exam: Normal Affect, Normal Mood - Skin Skin Exam: Warm Assessment and Plan - Assessment and Plan (Free Text) Assessment: PT/OT to continue to help increase functional independence Team conference for d/c planning. 07/09/18 AZUCENA. Making gains and this therapy will likely make a big impact in how he will be able to participate in DARELL therapy Pain: controlled Vascular: no evidence of DVT GI: No evidence of constipation or diarrhea Patient continues to be an excellent acute rehabilitation candidate and will have continued focused speech, PT, OT and recreational therapy to help facilitate a safe and appropriate d/c plan
--- NOTE | 2018-06-29 18:46 | CP.PCM.PN ---
Subjective - Date & Time of Evaluation Date of Evaluation: 06/28/18 Objective - Vital Signs/Intake and Output Vital Signs (last 24 hours): Temp Pulse Resp BP Pulse Ox 97.5 F L 72 18 120/80 96 06/29/18 15:30 06/29/18 15:30 06/29/18 15:30 06/29/18 15:30 06/29/18 08:09 - Medications Medications: Current Medications Acetaminophen (Tylenol 325mg Tab) 650 mg PO Q6H PRN PRN Reason: Pain scale 4-10 Last Admin: 06/28/18 08:19 Dose: 650 mg Amlodipine Besylate (Norvasc) 5 mg PO DAILY [facility] Last Admin: 06/29/18 08:19 Dose: 5 mg Aspirin (Ecotrin) 325 mg PO DAILY [facility] Last Admin: 06/29/18 08:17 Dose: 325 mg Atorvastatin Calcium (Lipitor) 80 mg PO HS [facility] Last Admin: 06/28/18 21:11 Dose: 80 mg Docusate Sodium (Colace) 100 mg PO BID [facility] Last Admin: 06/29/18 16:27 Dose: 100 mg Enoxaparin Sodium (Lovenox) 40 mg SC DAILY [facility]; Protocol Last Admin: 06/29/18 08:20 Dose: 40 mg Gabapentin (Neurontin) 400 mg PO TID [facility] Last Admin: 06/29/18 16:28 Dose: 400 mg Insulin Detemir (Levemir) 30 units SC [facility] Last Admin: 06/28/18 21:11 Dose: 30 units Insulin Human Lispro (Humalog) 0 units SC [facility]; Protocol Last Admin: 06/29/18 16:28 Dose: 4 units Lactulose (Enulose) 20 gm PO Q12 PRN PRN Reason: for constipation Last Admin: 06/29/18 08:18 Dose: 20 gm Lidocaine (Lidoderm) 1 ea TD DAILY PRN PRN Reason: pain Last Admin: 06/19/18 10:31 Dose: 1 ea Lisinopril (Zestril) 20 mg PO DAILY [facility] Last Admin: 06/29/18 08:19 Dose: 20 mg Metformin HCl (Glucophage) 500 mg PO BIDWM [facility] Last Admin: 06/29/18 16:27 Dose: 500 mg Metoprolol Succinate (Toprol Xl) 100 mg PO DAILY [facility] Last Admin: 06/29/18 08:18 Dose: 100 mg Tamsulosin HCl (Flomax) 0.4 mg PO DAILY [facility] Last Admin: 06/29/18 08:18 Dose: 0.4 mg - Labs Labs: 06/29/18 05:15 06/29/18 05:15 PT 12.1 Seconds (9.8-13.1) 06/17/18 05:25 INR 1.1 06/17/18 05:25 APTT 32.3 Seconds (25.6-37.1) 06/17/18 05:25 Assessment and Plan (1) Acute right MCA stroke Status: Acute (2) Left hemiplegia Status: Acute (3) Fracture of neck of left humerus Status: Acute (4) Recurrent falls Status: Acute
--- NOTE | 2018-06-29 18:47 | CP.PCM.PN ---
Subjective - Date & Time of Evaluation Date of Evaluation: 06/29/18 Objective - Vital Signs/Intake and Output Vital Signs (last 24 hours): Temp Pulse Resp BP Pulse Ox 97.5 F L 72 18 120/80 96 06/29/18 15:30 06/29/18 15:30 06/29/18 15:30 06/29/18 15:30 06/29/18 08:09 - Medications Medications: Current Medications Acetaminophen (Tylenol 325mg Tab) 650 mg PO Q6H PRN PRN Reason: Pain scale 4-10 Last Admin: 06/28/18 08:19 Dose: 650 mg Amlodipine Besylate (Norvasc) 5 mg PO DAILY [facility] Last Admin: 06/29/18 08:19 Dose: 5 mg Aspirin (Ecotrin) 325 mg PO DAILY [facility] Last Admin: 06/29/18 08:17 Dose: 325 mg Atorvastatin Calcium (Lipitor) 80 mg PO HS [facility] Last Admin: 06/28/18 21:11 Dose: 80 mg Docusate Sodium (Colace) 100 mg PO BID [facility] Last Admin: 06/29/18 16:27 Dose: 100 mg Enoxaparin Sodium (Lovenox) 40 mg SC DAILY [facility]; Protocol Last Admin: 06/29/18 08:20 Dose: 40 mg Gabapentin (Neurontin) 400 mg PO TID [facility] Last Admin: 06/29/18 16:28 Dose: 400 mg Insulin Detemir (Levemir) 30 units SC [facility] Last Admin: 06/28/18 21:11 Dose: 30 units Insulin Human Lispro (Humalog) 0 units SC [facility]; Protocol Last Admin: 06/29/18 16:28 Dose: 4 units Lactulose (Enulose) 20 gm PO Q12 PRN PRN Reason: for constipation Last Admin: 06/29/18 08:18 Dose: 20 gm Lidocaine (Lidoderm) 1 ea TD DAILY PRN PRN Reason: pain Last Admin: 06/19/18 10:31 Dose: 1 ea Lisinopril (Zestril) 20 mg PO DAILY [facility] Last Admin: 06/29/18 08:19 Dose: 20 mg Metformin HCl (Glucophage) 500 mg PO BIDWM [facility] Last Admin: 06/29/18 16:27 Dose: 500 mg Metoprolol Succinate (Toprol Xl) 100 mg PO DAILY [facility] Last Admin: 06/29/18 08:18 Dose: 100 mg Tamsulosin HCl (Flomax) 0.4 mg PO DAILY [facility] Last Admin: 06/29/18 08:18 Dose: 0.4 mg - Labs Labs: 06/29/18 05:15 06/29/18 05:15 PT 12.1 Seconds (9.8-13.1) 06/17/18 05:25 INR 1.1 06/17/18 05:25 APTT 32.3 Seconds (25.6-37.1) 06/17/18 05:25 Assessment and Plan (1) Acute right MCA stroke Status: Acute (2) Left hemiplegia Status: Acute (3) Fracture of neck of left humerus Status: Acute (4) Recurrent falls Status: Acute
[2018-06-29] MEDS: Insulin Detemir 100 Units/ml Inj SC SCH (21:18)
[2018-06-30] MEDS: Insulin Lispro (humaLOG) 100 Units/ml Inj SC SCH ×4 (07:32→22:02)
[2018-06-30] MEDS: Aspirin 325 mg EC Tablets PO SCH (08:14)
[2018-06-30] MEDS: Metoprolol Succinate 100 mg XL Tab PO SCH (08:15)
[2018-06-30] MEDS: Enoxaparin 40 mg Syringe SC SCH (08:15)
[2018-06-30] MEDS: Insulin Detemir 100 Units/ml Inj SC SCH (22:02)
[2018-07-01] MEDS: Insulin Lispro (humaLOG) 100 Units/ml Inj SC SCH ×4 (07:19→22:21)
[2018-07-01] MEDS: Enoxaparin 40 mg Syringe SC SCH (08:53)
[2018-07-01] MEDS: Metoprolol Succinate 100 mg XL Tab PO SCH (08:54)
[2018-07-01] MEDS: Aspirin 325 mg EC Tablets PO SCH (08:55)
[2018-07-01] MEDS: Lidocaine 5% Patch TD PRN (08:56)
--- NOTE | 2018-07-01 11:23 | RAD ---
Date of service: 06/30/2018 PROCEDURE: Radiographs of the Left Shoulder HISTORY: r/o fracture COMPARISON: No prior. TECHNIQUE: 2 views obtained. FINDINGS: BONES: There is a deformity the proximal humerus with head impacted into the proximal metaphysis appears unclear whether this represents a chronic or acute fracture. Two views submitted a nearly identical and there is poor differentiation of proximal humeral head and the local metaphysis as the proximal humerus is rotated over the proximal scapula. Diffuse osteopenia suggests osteoporosis. Fracture of the scapula is also not excluded though none is clearly identified. The acromioclavicular joint is degenerated but limited evaluation. JOINTS: Gross acromioclavicular joint separation or glenohumeral joint dislocation appreciable. Anterior-posterior imaging is recommended for more accurate separation of the bony anatomy of the left shoulder. SOFT TISSUES: Normal. OTHER FINDINGS: None. IMPRESSION: Acute or chronic fracture proximal left humerus. Clinically correlate further. Added radiographic imaging left shoulder would be helpful given overlap of the upper scapula with the proximal left humerus as discussed above. It is not possible, CT is available for added characterization.
--- NOTE | 2018-07-01 18:04 | CP.PCM.PN ---
Subjective - Date & Time of Evaluation Date of Evaluation: 07/01/18 Time of Evaluation: 18:03 - Subjective Subjective: Estuardo Aguilar, born 1945, who has been admitted to [facility] for acute inpatient rehabilitation Left HD male. Right CVA with dense left HP. Also left greater tuberosity fracture. Treated non-operatively. In sling and NWB on the left UE through the shoulder X-ray has been done and shows acute/chronic fracture. not very specific about callus Objective - Vital Signs/Intake and Output Vital Signs (last 24 hours): Temp Pulse Resp BP Pulse Ox 97.2 F L 77 20 129/66 98 07/01/18 09:29 07/01/18 09:29 07/01/18 09:29 07/01/18 09:29 07/01/18 09:29 - Medications Medications: Current Medications Acetaminophen (Tylenol 325mg Tab) 650 mg PO Q6H PRN PRN Reason: Pain scale 4-10 Last Admin: 06/28/18 08:19 Dose: 650 mg Amlodipine Besylate (Norvasc) 5 mg PO DAILY [facility] Last Admin: 07/01/18 08:56 Dose: 5 mg Aspirin (Ecotrin) 325 mg PO DAILY [facility] Last Admin: 07/01/18 08:55 Dose: 325 mg Atorvastatin Calcium (Lipitor) 80 mg PO HS [facility] Last Admin: 06/30/18 22:01 Dose: 80 mg Docusate Sodium (Colace) 100 mg PO BID [facility] Last Admin: 07/01/18 16:37 Dose: 100 mg Enoxaparin Sodium (Lovenox) 40 mg SC DAILY [facility]; Protocol Last Admin: 07/01/18 08:53 Dose: 40 mg Gabapentin (Neurontin) 400 mg PO TID [facility] Last Admin: 07/01/18 16:38 Dose: 400 mg Insulin Detemir (Levemir) 30 units SC HS [facility] Last Admin: 06/30/18 22:02 Dose: 30 units Insulin Human Lispro (Humalog) 0 units SC [facility]; Protocol Last Admin: 07/01/18 16:38 Dose: Not Given Lactulose (Enulose) 20 gm PO Q12 PRN PRN Reason: for constipation Last Admin: 06/30/18 22:04 Dose: 20 gm Lidocaine (Lidoderm) 1 ea TD DAILY PRN PRN Reason: pain Last Admin: 07/01/18 08:56 Dose: 1 ea Lisinopril (Zestril) 20 mg PO DAILY [facility] Last Admin: 07/01/18 08:54 Dose: 20 mg Metformin HCl (Glucophage) 500 mg PO BIDWM [facility] Last Admin: 07/01/18 16:38 Dose: 500 mg Metoprolol Succinate (Toprol Xl) 100 mg PO DAILY [facility] Last Admin: 07/01/18 08:54 Dose: 100 mg Tamsulosin HCl (Flomax) 0.4 mg PO DAILY [facility] Last Admin: 07/01/18 08:54 Dose: 0.4 mg - Labs Labs: 06/29/18 05:15 06/29/18 05:15 PT 12.1 Seconds (9.8-13.1) 06/17/18 05:25 INR 1.1 06/17/18 05:25 APTT 32.3 Seconds (25.6-37.1) 06/17/18 05:25 - Constitutional Appears: Non-toxic, No Acute Distress - Head Exam Head Exam: ATRAUMATIC, NORMAL INSPECTION, NORMOCEPHALIC - Eye Exam Eye Exam: EOMI - ENT Exam ENT Exam: Mucous Membranes Moist - Respiratory Exam Respiratory Exam: NORMAL BREATHING PATTERN - GI/Abdominal Exam GI & Abdominal Exam: absent: Guarding - Extremities Exam Extremities Exam: absent: Calf Tenderness - Psychiatric Exam Psychiatric exam: Normal Affect, Normal Mood - Skin Skin Exam: Warm Assessment and Plan - Assessment and Plan (Free Text) Assessment: Estuardo Aguilar, born 1945, who has been admitted to [facility] for acute inpatient rehabilitation Left HD male. Right CVA with dense left HP. Also left greater tuberosity fracture. Treated non-operatively. In sling and NWB on the left UE through the shoulder PT/OT to continue to help increase functional independence Team conference for d/c planning Pain: controlled Vascular: no evidence of DVT GI: No evidence of constipation or diarrhea Patient continues to be an excellent acute rehabilitation candidate and will have continued focused speech, PT, OT and recreational therapy to help facilitate a safe and appropriate d/c plan
[2018-07-01] MEDS: Insulin Detemir 100 Units/ml Inj SC SCH (22:20)
--- NOTE | 2018-07-01 23:50 | CP.PCM.PN ---
Subjective - Date & Time of Evaluation Date of Evaluation: 06/30/18 Objective - Vital Signs/Intake and Output Vital Signs (last 24 hours): Temp Pulse Resp BP Pulse Ox 97.9 F 71 20 141/72 97 07/01/18 19:43 07/01/18 19:43 07/01/18 19:43 07/01/18 19:43 07/01/18 19:43 - Medications Medications: Current Medications Acetaminophen (Tylenol 325mg Tab) 650 mg PO Q6H PRN PRN Reason: Pain scale 4-10 Last Admin: 06/28/18 08:19 Dose: 650 mg Amlodipine Besylate (Norvasc) 5 mg PO DAILY [facility] Last Admin: 07/01/18 08:56 Dose: 5 mg Aspirin (Ecotrin) 325 mg PO DAILY [facility] Last Admin: 07/01/18 08:55 Dose: 325 mg Atorvastatin Calcium (Lipitor) 80 mg PO HS [facility] Last Admin: 07/01/18 22:19 Dose: 80 mg Docusate Sodium (Colace) 100 mg PO BID [facility] Last Admin: 07/01/18 16:37 Dose: 100 mg Enoxaparin Sodium (Lovenox) 40 mg SC DAILY [facility]; Protocol Last Admin: 07/01/18 08:53 Dose: 40 mg Gabapentin (Neurontin) 400 mg PO TID [facility] Last Admin: 07/01/18 16:38 Dose: 400 mg Insulin Detemir (Levemir) 30 units SC [facility] Last Admin: 07/01/18 22:20 Dose: 30 units Insulin Human Lispro (Humalog) 0 units SC [facility]; Protocol Last Admin: 07/01/18 22:21 Dose: Not Given Lactulose (Enulose) 20 gm PO Q12 PRN PRN Reason: for constipation Last Admin: 06/30/18 22:04 Dose: 20 gm Lidocaine (Lidoderm) 1 ea TD DAILY PRN PRN Reason: pain Last Admin: 07/01/18 08:56 Dose: 1 ea Lisinopril (Zestril) 20 mg PO DAILY [facility] Last Admin: 07/01/18 08:54 Dose: 20 mg Metformin HCl (Glucophage) 500 mg PO BIDWM [facility] Last Admin: 07/01/18 16:38 Dose: 500 mg Metoprolol Succinate (Toprol Xl) 100 mg PO DAILY [facility] Last Admin: 07/01/18 08:54 Dose: 100 mg Tamsulosin HCl (Flomax) 0.4 mg PO DAILY [facility] Last Admin: 07/01/18 08:54 Dose: 0.4 mg - Labs Labs: 06/29/18 05:15 06/29/18 05:15 PT 12.1 Seconds (9.8-13.1) 06/17/18 05:25 INR 1.1 06/17/18 05:25 APTT 32.3 Seconds (25.6-37.1) 06/17/18 05:25 Assessment and Plan (1) Acute right MCA stroke Status: Acute (2) Left hemiplegia Status: Acute (3) Fracture of neck of left humerus Status: Acute (4) Recurrent falls Status: Acute
--- NOTE | 2018-07-01 23:50 | CP.PCM.PN ---
Subjective - Date & Time of Evaluation Date of Evaluation: 07/01/18 Objective - Vital Signs/Intake and Output Vital Signs (last 24 hours): Temp Pulse Resp BP Pulse Ox 97.9 F 71 20 141/72 97 07/01/18 19:43 07/01/18 19:43 07/01/18 19:43 07/01/18 19:43 07/01/18 19:43 - Medications Medications: Current Medications Acetaminophen (Tylenol 325mg Tab) 650 mg PO Q6H PRN PRN Reason: Pain scale 4-10 Last Admin: 06/28/18 08:19 Dose: 650 mg Amlodipine Besylate (Norvasc) 5 mg PO DAILY [facility] Last Admin: 07/01/18 08:56 Dose: 5 mg Aspirin (Ecotrin) 325 mg PO DAILY [facility] Last Admin: 07/01/18 08:55 Dose: 325 mg Atorvastatin Calcium (Lipitor) 80 mg PO HS [facility] Last Admin: 07/01/18 22:19 Dose: 80 mg Docusate Sodium (Colace) 100 mg PO BID [facility] Last Admin: 07/01/18 16:37 Dose: 100 mg Enoxaparin Sodium (Lovenox) 40 mg SC DAILY [facility]; Protocol Last Admin: 07/01/18 08:53 Dose: 40 mg Gabapentin (Neurontin) 400 mg PO TID [facility] Last Admin: 07/01/18 16:38 Dose: 400 mg Insulin Detemir (Levemir) 30 units SC [facility] Last Admin: 07/01/18 22:20 Dose: 30 units Insulin Human Lispro (Humalog) 0 units SC [facility]; Protocol Last Admin: 07/01/18 22:21 Dose: Not Given Lactulose (Enulose) 20 gm PO Q12 PRN PRN Reason: for constipation Last Admin: 06/30/18 22:04 Dose: 20 gm Lidocaine (Lidoderm) 1 ea TD DAILY PRN PRN Reason: pain Last Admin: 07/01/18 08:56 Dose: 1 ea Lisinopril (Zestril) 20 mg PO DAILY [facility] Last Admin: 07/01/18 08:54 Dose: 20 mg Metformin HCl (Glucophage) 500 mg PO BIDWM [facility] Last Admin: 07/01/18 16:38 Dose: 500 mg Metoprolol Succinate (Toprol Xl) 100 mg PO DAILY [facility] Last Admin: 07/01/18 08:54 Dose: 100 mg Tamsulosin HCl (Flomax) 0.4 mg PO DAILY [facility] Last Admin: 07/01/18 08:54 Dose: 0.4 mg - Labs Labs: 06/29/18 05:15 06/29/18 05:15 PT 12.1 Seconds (9.8-13.1) 06/17/18 05:25 INR 1.1 06/17/18 05:25 APTT 32.3 Seconds (25.6-37.1) 06/17/18 05:25 Assessment and Plan (1) Acute right MCA stroke Status: Acute (2) Left hemiplegia Status: Acute (3) Fracture of neck of left humerus Status: Acute (4) Recurrent falls Status: Acute
[2018-07-02 06:13] LABS: HEMOGLOBIN 13.2 g/dL (12.0-18.0); MEAN CELL VOLUME 86.5 fl (80.0-94.0); MEAN CORPUSCULAR HEMOGLOBIN 28.7 pg (27.0-31.0); MEAN CORPUSCULAR HGB CONC 33.2 g/dL (33.0-37.0); RBC 4.6 Mil/uL (4.40-5.90); RED CELL DISTRIBUTION WIDTH 15.2 % (11.5-14.5); WHITE BLOOD COUNT 7.5 K/uL (4.8-10.8)
[2018-07-02 06:26] LABS: BLOOD UREA NITROGEN 17 mg/dl (9-20); CALCIUM 9.5 mg/dL (8.4-10.2); GFR NON-AFRICAN AMERICAN > 60
[2018-07-02] MEDS: Insulin Lispro (humaLOG) 100 Units/ml Inj SC SCH ×4 (07:30→21:22)
[2018-07-02] MEDS: Enoxaparin 40 mg Syringe SC SCH (08:36)
[2018-07-02] MEDS: Metoprolol Succinate 100 mg XL Tab PO SCH (08:36)
[2018-07-02] MEDS: Aspirin 325 mg EC Tablets PO SCH (08:36)
--- NOTE | 2018-07-02 15:34 | CP.PCM.PN ---
Subjective - Date & Time of Evaluation Date of Evaluation: 07/02/18 Time of Evaluation: 15:33 - Subjective Subjective: pt seen in PT and continues to make great gains and is now doing 50' consistently started stairs NAD left arm sling continue current care Objective - Vital Signs/Intake and Output Vital Signs (last 24 hours): Temp Pulse Resp BP Pulse Ox 97.9 F 68 18 142/70 95 07/02/18 13:58 07/02/18 10:00 07/02/18 10:00 07/02/18 10:00 07/02/18 10:00 - Medications Medications: Current Medications Acetaminophen (Tylenol 325mg Tab) 650 mg PO Q6H PRN PRN Reason: Pain scale 4-10 Last Admin: 07/02/18 13:58 Dose: 650 mg Amlodipine Besylate (Norvasc) 5 mg PO DAILY [facility] Last Admin: 07/02/18 08:37 Dose: 5 mg Aspirin (Ecotrin) 325 mg PO DAILY [facility] Last Admin: 07/02/18 08:36 Dose: 325 mg Atorvastatin Calcium (Lipitor) 80 mg PO HS [facility] Last Admin: 07/01/18 22:19 Dose: 80 mg Docusate Sodium (Colace) 100 mg PO BID [facility] Last Admin: 07/02/18 08:35 Dose: 100 mg Enoxaparin Sodium (Lovenox) 40 mg SC DAILY [facility]; Protocol Last Admin: 07/02/18 08:36 Dose: 40 mg Gabapentin (Neurontin) 400 mg PO TID [facility] Last Admin: 07/02/18 12:56 Dose: 400 mg Insulin Detemir (Levemir) 30 units SC [facility] Last Admin: 07/01/18 22:20 Dose: 30 units Insulin Human Lispro (Humalog) 0 units SC [facility]; Protocol Last Admin: 07/02/18 11:48 Dose: 4 units Lactulose (Enulose) 20 gm PO Q12 PRN PRN Reason: for constipation Last Admin: 06/30/18 22:04 Dose: 20 gm Lidocaine (Lidoderm) 1 ea TD DAILY PRN PRN Reason: pain Last Admin: 07/01/18 08:56 Dose: 1 ea Lisinopril (Zestril) 20 mg PO DAILY [facility] Last Admin: 07/02/18 08:35 Dose: 20 mg Metformin HCl (Glucophage) 500 mg PO BIDWM [facility] Last Admin: 07/02/18 08:38 Dose: 500 mg Metoprolol Succinate (Toprol Xl) 100 mg PO DAILY [facility] Last Admin: 07/02/18 08:36 Dose: 100 mg Tamsulosin HCl (Flomax) 0.4 mg PO DAILY [facility] Last Admin: 07/02/18 08:38 Dose: 0.4 mg - Labs Labs: 07/02/18 05:09 07/02/18 05:09 PT 12.1 Seconds (9.8-13.1) 06/17/18 05:25 INR 1.1 06/17/18 05:25 APTT 32.3 Seconds (25.6-37.1) 06/17/18 05:25
--- NOTE | 2018-07-02 19:01 | CP.PCM.PN ---
Subjective - Date & Time of Evaluation Date of Evaluation: 07/02/18 Objective - Vital Signs/Intake and Output Vital Signs (last 24 hours): Temp Pulse Resp BP Pulse Ox 97.9 F 68 18 142/70 95 07/02/18 13:58 07/02/18 10:00 07/02/18 10:00 07/02/18 10:00 07/02/18 10:00 - Medications Medications: Current Medications Acetaminophen (Tylenol 325mg Tab) 650 mg PO Q6H PRN PRN Reason: Pain scale 4-10 Last Admin: 07/02/18 13:58 Dose: 650 mg Amlodipine Besylate (Norvasc) 5 mg PO DAILY [facility] Last Admin: 07/02/18 08:37 Dose: 5 mg Aspirin (Ecotrin) 325 mg PO DAILY [facility] Last Admin: 07/02/18 08:36 Dose: 325 mg Atorvastatin Calcium (Lipitor) 80 mg PO HS [facility] Last Admin: 07/01/18 22:19 Dose: 80 mg Docusate Sodium (Colace) 100 mg PO BID [facility] Last Admin: 07/02/18 16:54 Dose: 100 mg Enoxaparin Sodium (Lovenox) 40 mg SC DAILY [facility]; Protocol Last Admin: 07/02/18 08:36 Dose: 40 mg Gabapentin (Neurontin) 400 mg PO TID [facility] Last Admin: 07/02/18 16:54 Dose: 400 mg Insulin Detemir (Levemir) 30 units SC [facility] Last Admin: 07/01/18 22:20 Dose: 30 units Insulin Human Lispro (Humalog) 0 units SC [facility]; Protocol Last Admin: 07/02/18 16:55 Dose: 4 units Lactulose (Enulose) 20 gm PO Q12 PRN PRN Reason: for constipation Last Admin: 07/02/18 16:55 Dose: 20 gm Lidocaine (Lidoderm) 1 ea TD DAILY PRN PRN Reason: pain Last Admin: 07/01/18 08:56 Dose: 1 ea Lisinopril (Zestril) 20 mg PO DAILY [facility] Last Admin: 07/02/18 08:35 Dose: 20 mg Metformin HCl (Glucophage) 500 mg PO BIDWM [facility] Last Admin: 07/02/18 16:54 Dose: 500 mg Metoprolol Succinate (Toprol Xl) 100 mg PO DAILY [facility] Last Admin: 07/02/18 08:36 Dose: 100 mg Tamsulosin HCl (Flomax) 0.4 mg PO DAILY [facility] Last Admin: 07/02/18 08:38 Dose: 0.4 mg - Labs Labs: 07/02/18 05:09 07/02/18 05:09 PT 12.1 Seconds (9.8-13.1) 06/17/18 05:25 INR 1.1 06/17/18 05:25 APTT 32.3 Seconds (25.6-37.1) 06/17/18 05:25 Assessment and Plan (1) Acute right MCA stroke Status: Acute (2) Left hemiplegia Status: Acute (3) Fracture of neck of left humerus Status: Acute (4) Recurrent falls Status: Acute
[2018-07-02] MEDS: Insulin Detemir 100 Units/ml Inj SC SCH (21:21)
[2018-07-03] MEDS: Aspirin 325 mg EC Tablets PO SCH (08:20)
[2018-07-03] MEDS: Enoxaparin 40 mg Syringe SC SCH (08:20)
[2018-07-03] MEDS: Metoprolol Succinate 100 mg XL Tab PO SCH (08:21)
[2018-07-03] MEDS: Insulin Lispro (humaLOG) 100 Units/ml Inj SC SCH ×4 (08:22→21:47)
[2018-07-03] MEDS: Lidocaine 5% Patch TD PRN (09:55)
[2018-07-03] MEDS: Insulin Detemir 100 Units/ml Inj SC SCH (21:47)
[2018-07-04] MEDS: Insulin Lispro (humaLOG) 100 Units/ml Inj SC SCH ×5 (07:37→21:44)
[2018-07-04] MEDS: Aspirin 325 mg EC Tablets PO SCH (08:23)
[2018-07-04] MEDS: Metoprolol Succinate 100 mg XL Tab PO SCH (08:24)
[2018-07-04] MEDS: Enoxaparin 40 mg Syringe SC SCH (08:24)
--- NOTE | 2018-07-04 19:34 | CP.PCM.PN ---
Subjective - Date & Time of Evaluation Date of Evaluation: 07/04/18 Objective - Vital Signs/Intake and Output Vital Signs (last 24 hours): Temp Pulse Resp BP Pulse Ox 96.8 F L 67 20 155/85 H 100 07/04/18 09:54 07/04/18 09:54 07/04/18 09:54 07/04/18 09:54 07/04/18 09:54 - Medications Medications: Current Medications Acetaminophen (Tylenol 325mg Tab) 650 mg PO Q6H PRN PRN Reason: Pain scale 4-10 Last Admin: 07/02/18 13:58 Dose: 650 mg Amlodipine Besylate (Norvasc) 5 mg PO DAILY [facility] Last Admin: 07/04/18 08:23 Dose: 5 mg Aspirin (Ecotrin) 325 mg PO DAILY [facility] Last Admin: 07/04/18 08:23 Dose: 325 mg Atorvastatin Calcium (Lipitor) 80 mg PO HS [facility] Last Admin: 07/03/18 21:42 Dose: 80 mg Docusate Sodium (Colace) 100 mg PO BID [facility] Last Admin: 07/04/18 16:37 Dose: 100 mg Enoxaparin Sodium (Lovenox) 40 mg SC DAILY [facility]; Protocol Last Admin: 07/04/18 08:24 Dose: 40 mg Gabapentin (Neurontin) 400 mg PO TID [facility] Last Admin: 07/04/18 16:37 Dose: 400 mg Insulin Detemir (Levemir) 30 units SC [facility] Last Admin: 07/03/18 21:47 Dose: 30 units Insulin Human Lispro (Humalog) 0 units SC [facility]; Protocol Last Admin: 07/04/18 16:40 Dose: 4 units Lactulose (Enulose) 20 gm PO Q12 PRN PRN Reason: for constipation Last Admin: 07/04/18 08:25 Dose: 20 gm Lidocaine (Lidoderm) 1 ea TD DAILY PRN PRN Reason: pain Last Admin: 07/03/18 09:55 Dose: 1 ea Lisinopril (Zestril) 20 mg PO DAILY [facility] Last Admin: 07/04/18 08:24 Dose: 20 mg Metformin HCl (Glucophage) 500 mg PO BIDWM [facility] Last Admin: 07/04/18 16:37 Dose: 500 mg Metoprolol Succinate (Toprol Xl) 100 mg PO DAILY [facility] Last Admin: 07/04/18 08:24 Dose: 100 mg Tamsulosin HCl (Flomax) 0.4 mg PO DAILY [facility] Last Admin: 07/04/18 08:23 Dose: 0.4 mg - Labs Labs: 07/02/18 05:09 07/02/18 05:09 PT 12.1 Seconds (9.8-13.1) 06/17/18 05:25 INR 1.1 06/17/18 05:25 APTT 32.3 Seconds (25.6-37.1) 06/17/18 05:25 Assessment and Plan (1) Acute right MCA stroke Status: Acute (2) Left hemiplegia Status: Acute (3) Fracture of neck of left humerus Status: Acute (4) Recurrent falls Status: Acute
--- NOTE | 2018-07-04 19:34 | CP.PCM.PN ---
Subjective - Date & Time of Evaluation Date of Evaluation: 07/03/18 Objective - Vital Signs/Intake and Output Vital Signs (last 24 hours): Temp Pulse Resp BP Pulse Ox 96.8 F L 67 20 155/85 H 100 07/04/18 09:54 07/04/18 09:54 07/04/18 09:54 07/04/18 09:54 07/04/18 09:54 - Medications Medications: Current Medications Acetaminophen (Tylenol 325mg Tab) 650 mg PO Q6H PRN PRN Reason: Pain scale 4-10 Last Admin: 07/02/18 13:58 Dose: 650 mg Amlodipine Besylate (Norvasc) 5 mg PO DAILY [facility] Last Admin: 07/04/18 08:23 Dose: 5 mg Aspirin (Ecotrin) 325 mg PO DAILY [facility] Last Admin: 07/04/18 08:23 Dose: 325 mg Atorvastatin Calcium (Lipitor) 80 mg PO HS [facility] Last Admin: 07/03/18 21:42 Dose: 80 mg Docusate Sodium (Colace) 100 mg PO BID [facility] Last Admin: 07/04/18 16:37 Dose: 100 mg Enoxaparin Sodium (Lovenox) 40 mg SC DAILY [facility]; Protocol Last Admin: 07/04/18 08:24 Dose: 40 mg Gabapentin (Neurontin) 400 mg PO TID [facility] Last Admin: 07/04/18 16:37 Dose: 400 mg Insulin Detemir (Levemir) 30 units SC [facility] Last Admin: 07/03/18 21:47 Dose: 30 units Insulin Human Lispro (Humalog) 0 units SC [facility]; Protocol Last Admin: 07/04/18 16:40 Dose: 4 units Lactulose (Enulose) 20 gm PO Q12 PRN PRN Reason: for constipation Last Admin: 07/04/18 08:25 Dose: 20 gm Lidocaine (Lidoderm) 1 ea TD DAILY PRN PRN Reason: pain Last Admin: 07/03/18 09:55 Dose: 1 ea Lisinopril (Zestril) 20 mg PO DAILY [facility] Last Admin: 07/04/18 08:24 Dose: 20 mg Metformin HCl (Glucophage) 500 mg PO BIDWM [facility] Last Admin: 07/04/18 16:37 Dose: 500 mg Metoprolol Succinate (Toprol Xl) 100 mg PO DAILY [facility] Last Admin: 07/04/18 08:24 Dose: 100 mg Tamsulosin HCl (Flomax) 0.4 mg PO DAILY [facility] Last Admin: 07/04/18 08:23 Dose: 0.4 mg - Labs Labs: 07/02/18 05:09 07/02/18 05:09 PT 12.1 Seconds (9.8-13.1) 06/17/18 05:25 INR 1.1 06/17/18 05:25 APTT 32.3 Seconds (25.6-37.1) 06/17/18 05:25 Assessment and Plan (1) Acute right MCA stroke Status: Acute (2) Left hemiplegia Status: Acute (3) Fracture of neck of left humerus Status: Acute (4) Recurrent falls Status: Acute
[2018-07-04] MEDS: Insulin Detemir 100 Units/ml Inj SC SCH (21:43)
[2018-07-05] MEDS: Insulin Lispro (humaLOG) 100 Units/ml Inj SC SCH ×4 (06:46→21:23)
[2018-07-05] MEDS: Aspirin 325 mg EC Tablets PO SCH (08:12)
[2018-07-05] MEDS: Enoxaparin 40 mg Syringe SC SCH (08:15)
[2018-07-05] MEDS: Metoprolol Succinate 100 mg XL Tab PO SCH (09:00)
--- NOTE | 2018-07-05 17:56 | CP.PCM.PN ---
Subjective - Date & Time of Evaluation Date of Evaluation: 07/05/18 Time of Evaluation: 17:55 - Subjective Subjective: Estuardo Aguilar, born 1945, who has been admitted to [facility] for acute inpatient rehabilitation Left HD male. Right CVA with dense left HP. Also left greater tuberosity fracture. Treated non-operatively. In sling and NWB on the left UE through the shoulder X-ray has been done and shows acute/chronic fracture. not very specific about callus very happy with progress and getting some return in the left UE/LE Objective - Vital Signs/Intake and Output Vital Signs (last 24 hours): Temp Pulse Resp BP Pulse Ox 97.6 F 67 18 161/87 H 97 07/05/18 10:00 07/05/18 10:00 07/05/18 10:00 07/05/18 10:00 07/05/18 10:00 - Medications Medications: Current Medications Acetaminophen (Tylenol 325mg Tab) 650 mg PO Q6H PRN PRN Reason: Pain scale 4-10 Last Admin: 07/04/18 21:39 Dose: 650 mg Amlodipine Besylate (Norvasc) 5 mg PO DAILY [facility] Last Admin: 07/05/18 08:14 Dose: 5 mg Aspirin (Ecotrin) 325 mg PO DAILY [facility] Last Admin: 07/05/18 08:12 Dose: 325 mg Atorvastatin Calcium (Lipitor) 80 mg PO HS [facility] Last Admin: 07/04/18 21:38 Dose: 80 mg Docusate Sodium (Colace) 100 mg PO BID [facility] Last Admin: 07/05/18 16:44 Dose: 100 mg Enoxaparin Sodium (Lovenox) 40 mg SC DAILY [facility]; Protocol Last Admin: 07/05/18 08:15 Dose: 40 mg Gabapentin (Neurontin) 400 mg PO TID [facility] Last Admin: 07/05/18 16:44 Dose: 400 mg Insulin Detemir (Levemir) 30 units SC [facility] Last Admin: 07/04/18 21:43 Dose: 30 units Insulin Human Lispro (Humalog) 0 units SC [facility]; Protocol Last Admin: 07/05/18 16:45 Dose: 4 units Lactulose (Enulose) 20 gm PO Q12 PRN PRN Reason: for constipation Last Admin: 07/05/18 08:12 Dose: 20 gm Lidocaine (Lidoderm) 1 ea TD DAILY PRN PRN Reason: pain Last Admin: 07/03/18 09:55 Dose: 1 ea Lisinopril (Zestril) 20 mg PO DAILY [facility] Last Admin: 07/05/18 08:13 Dose: 20 mg Metformin HCl (Glucophage) 500 mg PO BIDWM [facility] Last Admin: 07/05/18 16:44 Dose: 500 mg Metoprolol Succinate (Toprol Xl) 100 mg PO DAILY [facility] Last Admin: 07/05/18 09:00 Dose: 100 mg Tamsulosin HCl (Flomax) 0.4 mg PO DAILY [facility] Last Admin: 07/05/18 08:13 Dose: 0.4 mg - Labs Labs: 07/02/18 05:09 07/02/18 05:09 PT 12.1 Seconds (9.8-13.1) 06/17/18 05:25 INR 1.1 06/17/18 05:25 APTT 32.3 Seconds (25.6-37.1) 06/17/18 05:25 - Constitutional Appears: Non-toxic, No Acute Distress - Head Exam Head Exam: ATRAUMATIC, NORMAL INSPECTION, NORMOCEPHALIC - Eye Exam Eye Exam: EOMI - ENT Exam ENT Exam: Mucous Membranes Moist - Respiratory Exam Respiratory Exam: NORMAL BREATHING PATTERN - Cardiovascular Exam Cardiovascular Exam: REGULAR RHYTHM - GI/Abdominal Exam GI & Abdominal Exam: Normal Bowel Sounds. absent: Guarding - Extremities Exam Extremities Exam: absent: Calf Tenderness, Joint Swelling - Neurological Exam Neurological Exam: Alert, CN II-XII Intact - Psychiatric Exam Psychiatric exam: absent: Manic - Skin Skin Exam: Warm Assessment and Plan - Assessment and Plan (Free Text) Assessment: Estuardo Aguilar, born 1945, who has been admitted to [facility] for acute inpatient rehabilitation Left HD male. Right CVA with dense left HP. Also left greater tuberosity fracture. Treated non-operatively. In sling and NWB on the left UE through the shoulder X-ray has been done and shows acute/chronic fracture. not very specific about callus PT/OT to continue to help increase functional independence Team conference for d/c planning Pain: controlled Vascular: no evidence of DVT GI: No evidence of constipation or diarrhea Patient continues to be an excellent acute rehabilitation candidate and will have continued focused speech, PT, OT and recreational therapy to help facilitate a safe and appropriate d/c plan
[2018-07-05] MEDS: Insulin Detemir 100 Units/ml Inj SC SCH (21:23)
[2018-07-06 06:06] LABS: MEAN CELL VOLUME 87.1 fl (80.0-94.0); MEAN CORPUSCULAR HGB CONC 32.1 g/dL (33.0-37.0); RBC 4.64 Mil/uL (4.40-5.90); RED CELL DISTRIBUTION WIDTH 15.4 % (11.5-14.5); WHITE BLOOD COUNT 8.3 K/uL (4.8-10.8)
[2018-07-06 06:08] LABS: BLOOD UREA NITROGEN 23 mg/dl (9-20); CALCIUM 9.3 mg/dL (8.4-10.2); GFR NON-AFRICAN AMERICAN 60
[2018-07-06] MEDS: Insulin Lispro (humaLOG) 100 Units/ml Inj SC SCH ×4 (07:18→21:24)
[2018-07-06] MEDS: Enoxaparin 40 mg Syringe SC SCH (08:12)
[2018-07-06] MEDS: Metoprolol Succinate 100 mg XL Tab PO SCH (08:14)
[2018-07-06] MEDS: Aspirin 325 mg EC Tablets PO SCH (08:16)
--- NOTE | 2018-07-06 09:44 | CP.PCM.PN ---
Subjective - Date & Time of Evaluation Date of Evaluation: 07/05/18 Objective - Vital Signs/Intake and Output Vital Signs (last 24 hours): Temp Pulse Resp BP Pulse Ox 97.7 F 64 18 149/79 97 07/06/18 07:29 07/06/18 08:15 07/06/18 07:29 07/06/18 08:15 07/06/18 07:29 - Medications Medications: Current Medications Acetaminophen (Tylenol 325mg Tab) 650 mg PO Q6H PRN PRN Reason: Pain scale 4-10 Last Admin: 07/04/18 21:39 Dose: 650 mg Amlodipine Besylate (Norvasc) 5 mg PO DAILY [facility] Last Admin: 07/06/18 08:15 Dose: 5 mg Aspirin (Ecotrin) 325 mg PO DAILY [facility] Last Admin: 07/06/18 08:16 Dose: 325 mg Atorvastatin Calcium (Lipitor) 80 mg PO HS [facility] Last Admin: 07/05/18 21:22 Dose: 80 mg Docusate Sodium (Colace) 100 mg PO BID [facility] Last Admin: 07/06/18 08:13 Dose: 100 mg Enoxaparin Sodium (Lovenox) 40 mg SC DAILY [facility]; Protocol Last Admin: 07/06/18 08:12 Dose: 40 mg Gabapentin (Neurontin) 400 mg PO TID [facility] Last Admin: 07/06/18 08:12 Dose: 400 mg Insulin Detemir (Levemir) 30 units SC [facility] Last Admin: 07/05/18 21:23 Dose: 30 units Insulin Human Lispro (Humalog) 0 units SC [facility]; Protocol Last Admin: 07/06/18 07:18 Dose: 2 units Lactulose (Enulose) 20 gm PO Q12 PRN PRN Reason: for constipation Last Admin: 07/05/18 08:12 Dose: 20 gm Lidocaine (Lidoderm) 1 ea TD DAILY PRN PRN Reason: pain Last Admin: 07/03/18 09:55 Dose: 1 ea Lisinopril (Zestril) 20 mg PO DAILY [facility] Last Admin: 07/06/18 08:14 Dose: 20 mg Metformin HCl (Glucophage) 500 mg PO BIDWM [facility] Last Admin: 07/06/18 08:12 Dose: 500 mg Metoprolol Succinate (Toprol Xl) 100 mg PO DAILY [facility] Last Admin: 07/06/18 08:14 Dose: 100 mg Tamsulosin HCl (Flomax) 0.4 mg PO DAILY [facility] Last Admin: 07/06/18 08:12 Dose: 0.4 mg - Labs Labs: 07/06/18 05:36 07/06/18 05:36 PT 12.1 Seconds (9.8-13.1) 06/17/18 05:25 INR 1.1 06/17/18 05:25 APTT 32.3 Seconds (25.6-37.1) 06/17/18 05:25 Assessment and Plan (1) Acute right MCA stroke Status: Acute (2) Left hemiplegia Status: Acute (3) Fracture of neck of left humerus Status: Acute (4) Recurrent falls Status: Acute
--- NOTE | 2018-07-06 13:45 | PCM.PSYTMC ---
Acute Rehab Team Conference - - Vital Signs: Vital Signs (Last 8 Hours): Vital Signs 07/06/18 07/06/18 07/06/18 07:29 08:14 08:15 Temperature 97.7 F Pulse Rate 64 64 64 Respiratory 18 Rate Blood Pressure 149/79 149/79 149/79 O2 Sat by Pulse 97 Oximetry 07/06/18 09:00 Temperature 97.7 F Pulse Rate 64 Respiratory 18 Rate Blood Pressure 149/79 O2 Sat by Pulse Oximetry Pain: 0 - Precautions: Precautions: Fall Prevention, Aspiration - Medications/Other Issues: Comment: None - Consults: Comment: Dr. Li Physiatry - Skin: Incision Site: N/A - Toileting: Toileting: Maximal Assistance - Bladder Management: Bladder Pattern: Normal Voiding Method: Toilet, Urinal Bladder Management: Maximal Assistance Other Intervention:: Spills - Transfers: Transfers: Maximal Assistance - ADL's: ADL's: Moderate Assistance - Pain Management: Other Intervention:: Tylenol 650 mg p.o every 6 hrs - Patient/Family Teaching: Other Intervention:: Safe transfers, non weight bearing to the left upper extremity. maintain on the left shoulder sling, indication of all medicines - Goals/Time Frame: Comment: Next team conference - Provider: Registered Nurse:: Stephany Paz Physical Therapy - Bed Mobility Bed Mobility: Verbal Cues, Contact Guard, Minimal Assistance - Transfers Wheelchair to Mat: Verbal Cues, Moderate Assistance, Maximum Assistance Sit to Stand: Verbal Cues, Contact Guard, Minimal Assistance - Ambulation Level of Assistance: Moderate Assistance, Maximum Assistance Distance (ft.): 55 Assistive Devices: Wide base quad cane Orthoses: LUE sling/swathe. LLE DF wrap Comment: -55 feet with feliz-walker on R. -x 3 trials. -LLE DF wrap in place. -requires assistance for initiation of L step/swing phase, weight shifting, sequencing and upright balance. -patient with tendency with rightwards trajectory, decreased L step and duplicate step with the R foot. -patient requires cues for upright gaze to improve LE extension and prevent flexion of hips/knees - Stair Negotiation Stairs: Level of Assistance: Maximum Assistance Handrails: Right Comment: -2 6 inch steps with R rail. -LLE DF wrap in place. -ascent forward/descent backwards. -max A of 1 with SBA/min A of 2nd person. -R rail. -ascent leading with RLE with mod to max A to stabilize LLE. -descent with cueing for sequencing leading with LLE; however, patient uses LLE for first step and then reports feeling fearful and due to flexion of trunk and knees uses RLE to descent resulting in patient sitting down on therapists lap to maintain safety. -repeated trials with education between to encourage patient to use safe and appropriate descent sequencing; accurate on 3rd trial with assistance of 2nd person to promote RUE motion to encourage upright extension stance - Standing Balance Static Stand: Minimal Assistance Comment: RUE platform on hemiwalker. mirror feedback - Pain Pain (assessed during therapy session): 0 Alleviating Techniques: Position Change, Distraction, Relaxation Techniques Comment: pt denies pain - Insight/Carryover Insight/Carryover: Fair - Patient/Family Education Comment: safety, therapy schedule, therapy goals, mobility, POC, stroke recovery, attention to task, discharge plan, self-releasing seatbelt - Assessment/Plan Assessment: Mr. Aguilar continues to make excellent progress during therapies. PT observes that today, patient is able to attend to tasks much better with reduced cueing to focus. Patient has reduced tangential movements and conversations during treatment session. Patient has improved attention to the available motion on the L side and is better able to manage LLE during gait and transfers compared to last week. Patient is able to ambulate with moderate assistance for longer distances with WBQC. Patient continues to require constant supervision for safety and hands on assistance to facilitate successful and safe completion of functional mobility. Pt will continue to benefit from skilled acute rehab to maximize safety and independence with all tasks. PT continues to recommend discharge to [facility] following maximization of time in acute rehabilitation to continue with skilled therapeutic rehabilitation program s/p acute CVA with dense feliz-paresis. - Goals Timeframe: 7 days Goals: Mr. Aguilar will complete the following with in 7 days: -perform rolling with CG. -perform supine to/from sit with CS. -perform sit to/from stand with with CG with R sided device. -perform stand pivot transfer with christiana A without device. -ambulate 100 feet with R sided device with mod A - Provider Physical Therapist:: Alize Whitfield License Number:: [id number] Occupational Therapy - Arousal/Attention/Orientation Level of Consciousness: Awake, Alert Patient Orientation: Person, Place, Time, Appropriate to Age, Appropriate to Situation Assessment Comment: needs re-direction - ADL/IADL Self Feeding: Set-up Help Grooming: Supervision, Verbal Cues, Set-up Help Bathing-Upper Ext: Verbal Cues, Set-up Help, Moderate Assistance Bathing-Lower Ext: Verbal Cues, Set-up Help, Maximum Assistance Dressing-Upper Ext: Verbal Cues, Set-up Help, Moderate Assistance Dressing-Lower Ext: Verbal Cues, Set-up Help, Moderate Assistance, Maximum Assistance Comment: -shower completed seated: mod/max assist and verbal cues. -needs reminders to sutain attention, attend to L side - Sitting Balance Static Sitting: Supervision Dynamic Sitting: Reaches across midline, Reaches out of base of support, Reaches within base of support, Contact Guard Assist, Minimal Assistance Comment: seated unsupported - Transfers Wheelchair to Bed Transfers: Verbal Cues, Set-up Help, Moderate Assistance Toilet Transfers: Verbal Cues, Set-up Help, Moderate Assistance Comment: shower transfers: mod/max assst and verbal cues to transfer bench - Wheelchair Management Level of Assistance: Moderate Assistance Distance (ft.): 150 - Upper Extremity Status Right Upper Extremity Comment: AROM/PROM ins WNLS Left Upper Extremity Comment: L shoulder immobilized by sling---No PROM TO 2' SHOULDER IMMOBILIZATION: PROM IN L ELBOW, FOREARM, WRIST, DIGITS WFLS; increase AROM n L elbow, forearm gravity eliminated 2-/5 to 2/5 varies with fatigue level - Pain Pain (assessed during therapy session): 0 Alleviating Techniques: Medication, Inactivity Comment: varies daily - Insight/Carryover Insight/Carryover: Fair - Patient/Family Education Comment: - self care, bed mobillty, transfers, w/c management, mobility using adaptive/compensatory strategies. -toileting and feeding program prn. -LUE immobilization --No PROM exercises to L shoulder until ortho clears for PROM to L shoulder. -educated on uses/applications of student union consultant, long shoe horn for lower body dressing--pt reports having items at home. -bed/w/c positioning. - encourage adl, transfers/mobility& OOB activities. -pt needs additional training to increase carryover. review progress, review OT/rehab goals - Assessment/Plan Assessment: *PRECAUTIONS: LUE SLING AT ALL TIMES, w/c seatblet(self release--alarm) for fall prevention, NO ROM EXERCISES TO L SHOULDER PENDING ORTHO clearance. Pt continues to demonstrate increase AROM in LUE/LLE, increase postural control/activity tolerance but continues to be distracted by visual/auditory & internal distractions. Pt will continue skilled occupational therapy to incraese L visual attention, L sustained/selective attention, increase LUE AROM/motor control, increase postural control, increase overall endurance to further maxmize function in self care, functional transfers/mobility uisng adaptive/compensatory strategies. Pt needs additional training to use dressing devices for lower body dressing. Pt's visual inattention to L side, distractibility(impaired sustained attention) impact on ability to to complete UPPER/LOWER BODY DRESSING, TRANSFERS & MOBILITY as well as carryover with assistive devices, - Goals Timeframe: 1 week Comment: *FEEDING: I/setup. *GROOMING: S/setup seated for all grooming tasks including shaving. *UPPER BODY DRESSING: Minimal-Mod assist and verbal cues feliz-techniques seated support. *LOWER BODY DRESSING: Mod assist and verbal cues with assistive device prn, feliz-techniques--long sitting in bed, adaptive devices prn. *W/C MANAGEMENT/PROPULSION: Min assist and verbal cues to propel w/c using RUE to push/RLE to steer 150 feet. *BATHING: moderate assist and verbal cues seated on transfer bench/use of hnad heldshower. *LUE STRENGTH: increase to 2-/5 so can use as stabilizer - Provider Occupational Therapist:: Mikaela Elizalde License Number: [id number] Speech Therapy - Consult Information Patient on Program: Yes Medical Diagnosis: CVA Treatment Diagnosis: Cognitive communication deficit - Assessment Problem Solving Impairment: Moderate Memory Impairment: Moderate - Plan Assessment: Mr Aguilar continues to present with a mild-moderate cognitive communcation impairment with deficits noted in the areas of sutained attention, delayed recall, and executive function skills. This week, he has improved his ability to orient, sustain attention and generative name items. Plan: Continue Speech/Language Therapy Frequency: 3-5 times per week Duration: 1 week - Provider Therapist: Marya Rodriguez License Number: [id number] Recreational Therapy - Participation Participation: Participates in Individual and/or Group Sessions - Attendance Attendance: 3-5 times per week - Activities Leisure Activities: Cards and Games - Socialization Level of Socialization: Initiates/interacts freely with care givers and peer - Assessment Assessment/Plan: Pt is agreeable to participate in 1:1 and group recreation therapy sessions throughout stay on unit. Pt presents with improved attention to task than prior week; however, requires mod-max with all leisure tasks 2' decrease attention to task and decrease visual attention to L side of tasks. Pt presents with decrease command following and decrease carryover of task rules. Pt's mood continues to be stable-positive. Problems Currently Limiting Participation: decrease attention to task, L side visual neglect, decrease safety awareness, impaired direction following, pain, L UE sling at all times Goals and Time Frame: Pt will participate in a 30 minute tabletop leisure task without any verbal cues for redirection to task or turn taking by date of discharge. - Provider Therapist: Kelley Kaplan Nutrition - Current Diet Current Diet/Supplement/Feedings: Moderate consistent CHO 2 gram Na low fat/low cholesterol diet - Appetite Percent Meal Consumed: 50-74% - Assessment/Goals/Time Frame Assessments/Goals/Time Frame: Pt at moderate nutritional risk. goals: 1. Pt to consume 75-100% of meals (Partially met, continue). 2 Blood glucoses to be between in 70-180 mg/dl (partially met,continue). Follow-up due on 07/09/2018 - Provider Provider: Olga Freitas Case Management - Psychosocial Assessment Support Systems: Dasha Aguilar (ex-) - [phone] Psychological Interventions/Needs: Patient is AAO and able to verbalize needs. Patient requires cueing at times to keep focused as he is easily distracted, but has been improving. Discharge Concerns: Patient was living alone and has a history of falls. Patient/Family Meeting: CM met with patient and rehab team. Intervention/Goal/Outcome: 1. Goal: Min Assist 2. Plan: [facility] at [place] pending auth 3. continued acute rehab auth through [facility] with d/c date of 07/09, LAD 07/05 (updates sent to [facility] dept) 4. f/u with [facility] liaison regarding referral sent 5. inform family that pt is being referred to their second [facility] choice as [facility] has informed CM that they do not contract with pt's insurance 6. prepare paperwork for transfer 7. obtain auth for [facility] from [facility] and provide receiving facility with [facility] # - Discharge Plan Discharge Plan: Subacute care - Provider Provider: Nichole Patel License Number: [id number] Rehabilitation Plan - Treatment Plan Treatment Plan: Physical Therapy, Occupational Therapy, Speech, Dietary - Discharge Plan Estimated Date of Discharge: 07/09/18 Discharge to: Subacute
--- NOTE | 2018-07-06 14:04 | CP.PCM.PN ---
Subjective - Date & Time of Evaluation Date of Evaluation: 07/06/18 Time of Evaluation: 14:03 - Subjective Subjective: Patient seen in the room with son present denies sob/cp making good gains each day and has been an ideal acute rehab candidate he will likely be discharged to [place] 07/09/18 continue current care Objective - Vital Signs/Intake and Output Vital Signs (last 24 hours): Temp Pulse Resp BP Pulse Ox 97.7 F 64 18 149/79 97 07/06/18 09:00 07/06/18 09:00 07/06/18 09:00 07/06/18 09:00 07/06/18 07:29 - Medications Medications: Current Medications Acetaminophen (Tylenol 325mg Tab) 650 mg PO Q6H PRN PRN Reason: Pain scale 4-10 Last Admin: 07/04/18 21:39 Dose: 650 mg Amlodipine Besylate (Norvasc) 5 mg PO DAILY [facility] Last Admin: 07/06/18 08:15 Dose: 5 mg Aspirin (Ecotrin) 325 mg PO DAILY [facility] Last Admin: 07/06/18 08:16 Dose: 325 mg Atorvastatin Calcium (Lipitor) 80 mg PO HS [facility] Last Admin: 07/05/18 21:22 Dose: 80 mg Docusate Sodium (Colace) 100 mg PO BID [facility] Last Admin: 07/06/18 08:13 Dose: 100 mg Enoxaparin Sodium (Lovenox) 40 mg SC DAILY [facility]; Protocol Last Admin: 07/06/18 08:12 Dose: 40 mg Gabapentin (Neurontin) 400 mg PO TID [facility] Last Admin: 07/06/18 12:07 Dose: 400 mg Insulin Detemir (Levemir) 30 units SC [facility] Last Admin: 07/05/18 21:23 Dose: 30 units Insulin Human Lispro (Humalog) 0 units SC [facility]; Protocol Last Admin: 07/06/18 12:06 Dose: 6 units Lactulose (Enulose) 20 gm PO Q12 PRN PRN Reason: for constipation Last Admin: 07/05/18 08:12 Dose: 20 gm Lidocaine (Lidoderm) 1 ea TD DAILY PRN PRN Reason: pain Last Admin: 07/03/18 09:55 Dose: 1 ea Lisinopril (Zestril) 20 mg PO DAILY [facility] Last Admin: 07/06/18 08:14 Dose: 20 mg Metformin HCl (Glucophage) 500 mg PO BIDWM [facility] Last Admin: 07/06/18 08:12 Dose: 500 mg Metoprolol Succinate (Toprol Xl) 100 mg PO DAILY [facility] Last Admin: 07/06/18 08:14 Dose: 100 mg Tamsulosin HCl (Flomax) 0.4 mg PO DAILY [facility] Last Admin: 07/06/18 08:12 Dose: 0.4 mg - Labs Labs: 07/06/18 05:36 07/06/18 05:36 PT 12.1 Seconds (9.8-13.1) 06/17/18 05:25 INR 1.1 06/17/18 05:25 APTT 32.3 Seconds (25.6-37.1) 06/17/18 05:25
[2018-07-06] MEDS: Insulin Detemir 100 Units/ml Inj SC SCH (21:26)
--- NOTE | 2018-07-07 01:40 | CP.PCM.PN ---
Subjective - Date & Time of Evaluation Date of Evaluation: 07/06/18 Objective - Vital Signs/Intake and Output Vital Signs (last 24 hours): Temp Pulse Resp BP Pulse Ox 98.2 F 84 20 137/78 97 07/06/18 21:06 07/06/18 21:06 07/06/18 21:06 07/06/18 21:06 07/06/18 21:06 - Medications Medications: Current Medications Acetaminophen (Tylenol 325mg Tab) 650 mg PO Q6H PRN PRN Reason: Pain scale 4-10 Last Admin: 07/06/18 16:25 Dose: 650 mg Amlodipine Besylate (Norvasc) 5 mg PO DAILY [facility] Last Admin: 07/06/18 08:15 Dose: 5 mg Aspirin (Ecotrin) 325 mg PO DAILY [facility] Last Admin: 07/06/18 08:16 Dose: 325 mg Atorvastatin Calcium (Lipitor) 80 mg PO HS [facility] Last Admin: 07/06/18 21:25 Dose: 80 mg Docusate Sodium (Colace) 100 mg PO BID [facility] Last Admin: 07/06/18 16:23 Dose: 100 mg Enoxaparin Sodium (Lovenox) 40 mg SC DAILY [facility]; Protocol Last Admin: 07/06/18 08:12 Dose: 40 mg Gabapentin (Neurontin) 400 mg PO TID [facility] Last Admin: 07/06/18 16:22 Dose: 400 mg Insulin Detemir (Levemir) 30 units SC [facility] Last Admin: 07/06/18 21:26 Dose: 30 units Insulin Human Lispro (Humalog) 0 units SC [facility]; Protocol Last Admin: 07/06/18 21:24 Dose: Not Given Lactulose (Enulose) 20 gm PO Q12 PRN PRN Reason: for constipation Last Admin: 07/06/18 16:23 Dose: 20 gm Lidocaine (Lidoderm) 1 ea TD DAILY PRN PRN Reason: pain Last Admin: 07/03/18 09:55 Dose: 1 ea Lisinopril (Zestril) 20 mg PO DAILY [facility] Last Admin: 07/06/18 08:14 Dose: 20 mg Metformin HCl (Glucophage) 500 mg PO BIDWM [facility] Last Admin: 07/06/18 16:22 Dose: 500 mg Metoprolol Succinate (Toprol Xl) 100 mg PO DAILY [facility] Last Admin: 07/06/18 08:14 Dose: 100 mg Tamsulosin HCl (Flomax) 0.4 mg PO DAILY [facility] Last Admin: 07/06/18 08:12 Dose: 0.4 mg - Labs Labs: 07/06/18 05:36 07/06/18 05:36 PT 12.1 Seconds (9.8-13.1) 06/17/18 05:25 INR 1.1 06/17/18 05:25 APTT 32.3 Seconds (25.6-37.1) 06/17/18 05:25 Assessment and Plan (1) Acute right MCA stroke Status: Acute (2) Left hemiplegia Status: Acute (3) Fracture of neck of left humerus Status: Acute (4) Recurrent falls Status: Acute
[2018-07-07] MEDS: Insulin Lispro (humaLOG) 100 Units/ml Inj SC SCH ×4 (08:15→21:35)
[2018-07-07] MEDS: Aspirin 325 mg EC Tablets PO SCH (08:18)
[2018-07-07] MEDS: Metoprolol Succinate 100 mg XL Tab PO SCH (08:19)
[2018-07-07] MEDS: Enoxaparin 40 mg Syringe SC SCH (08:20)
--- NOTE | 2018-07-07 17:05 | CP.PCM.PN ---
Subjective - Date & Time of Evaluation Date of Evaluation: 07/07/18 Time of Evaluation: 17:04 - Subjective Subjective: Patient seen in the rec room doing well denies sob/cp no fever continue current care Objective - Vital Signs/Intake and Output Vital Signs (last 24 hours): Temp Pulse Resp BP Pulse Ox 98.1 F 71 18 144/86 97 07/07/18 07:57 07/07/18 08:19 07/07/18 07:57 07/07/18 08:19 07/07/18 07:57 - Medications Medications: Current Medications Acetaminophen (Tylenol 325mg Tab) 650 mg PO Q6H PRN PRN Reason: Pain scale 4-10 Last Admin: 07/06/18 16:25 Dose: 650 mg Amlodipine Besylate (Norvasc) 5 mg PO DAILY [facility] Last Admin: 07/07/18 08:19 Dose: 5 mg Aspirin (Ecotrin) 325 mg PO DAILY [facility] Last Admin: 07/07/18 08:18 Dose: 325 mg Atorvastatin Calcium (Lipitor) 80 mg PO [facility] Last Admin: 07/06/18 21:25 Dose: 80 mg Docusate Sodium (Colace) 100 mg PO BID [facility] Last Admin: 07/07/18 16:29 Dose: Not Given Enoxaparin Sodium (Lovenox) 40 mg SC DAILY [facility]; Protocol Last Admin: 07/07/18 08:20 Dose: 40 mg Gabapentin (Neurontin) 400 mg PO TID [facility] Last Admin: 07/07/18 16:30 Dose: 400 mg Insulin Detemir (Levemir) 30 units SC [facility] Last Admin: 07/06/18 21:26 Dose: 30 units Insulin Human Lispro (Humalog) 0 units SC [facility]; Protocol Last Admin: 07/07/18 16:27 Dose: 6 units Lactulose (Enulose) 20 gm PO Q12 PRN PRN Reason: for constipation Last Admin: 07/06/18 16:23 Dose: 20 gm Lidocaine (Lidoderm) 1 ea TD DAILY PRN PRN Reason: pain Last Admin: 07/03/18 09:55 Dose: 1 ea Lisinopril (Zestril) 20 mg PO DAILY [facility] Last Admin: 07/07/18 08:18 Dose: 20 mg Metformin HCl (Glucophage) 500 mg PO BIDWM [facility] Last Admin: 07/07/18 16:31 Dose: 500 mg Metoprolol Succinate (Toprol Xl) 100 mg PO DAILY [facility] Last Admin: 07/07/18 08:19 Dose: 100 mg Tamsulosin HCl (Flomax) 0.4 mg PO DAILY [facility] Last Admin: 07/07/18 08:18 Dose: 0.4 mg - Labs Labs: 07/06/18 05:36 07/06/18 05:36 PT 12.1 Seconds (9.8-13.1) 06/17/18 05:25 INR 1.1 06/17/18 05:25 APTT 32.3 Seconds (25.6-37.1) 06/17/18 05:25
[2018-07-07] MEDS: Insulin Detemir 100 Units/ml Inj SC SCH (21:39)
[2018-07-08] MEDS: Insulin Lispro (humaLOG) 100 Units/ml Inj SC SCH ×4 (07:34→21:42)
[2018-07-08] MEDS: Metoprolol Succinate 100 mg XL Tab PO SCH (08:22)
[2018-07-08] MEDS: Aspirin 325 mg EC Tablets PO SCH (08:22)
[2018-07-08] MEDS: Enoxaparin 40 mg Syringe SC SCH (08:24)
--- NOTE | 2018-07-08 10:23 | CP.PCM.PN ---
Subjective - Date & Time of Evaluation Date of Evaluation: 07/07/18 Objective - Vital Signs/Intake and Output Vital Signs (last 24 hours): Temp Pulse Resp BP Pulse Ox 97.7 F 71 20 155/88 H 96 07/08/18 07:27 07/08/18 08:25 07/08/18 07:27 07/08/18 08:25 07/08/18 07:27 - Medications Medications: Current Medications Acetaminophen (Tylenol 325mg Tab) 650 mg PO Q6H PRN PRN Reason: Pain scale 4-10 Last Admin: 07/06/18 16:25 Dose: 650 mg Amlodipine Besylate (Norvasc) 5 mg PO DAILY [facility] Last Admin: 07/08/18 08:24 Dose: 5 mg Aspirin (Ecotrin) 325 mg PO DAILY [facility] Last Admin: 07/08/18 08:22 Dose: 325 mg Atorvastatin Calcium (Lipitor) 80 mg PO HS [facility] Last Admin: 07/07/18 21:28 Dose: 80 mg Docusate Sodium (Colace) 100 mg PO BID [facility] Last Admin: 07/08/18 08:23 Dose: 100 mg Enoxaparin Sodium (Lovenox) 40 mg SC DAILY [facility]; Protocol Last Admin: 07/08/18 08:24 Dose: 40 mg Gabapentin (Neurontin) 400 mg PO TID [facility] Last Admin: 07/08/18 08:23 Dose: 400 mg Insulin Detemir (Levemir) 30 units SC [facility] Last Admin: 07/07/18 21:39 Dose: 30 units Insulin Human Lispro (Humalog) 0 units SC [facility]; Protocol Last Admin: 07/08/18 07:34 Dose: 2 units Lactulose (Enulose) 20 gm PO Q12 PRN PRN Reason: for constipation Last Admin: 07/06/18 16:23 Dose: 20 gm Lidocaine (Lidoderm) 1 ea TD DAILY PRN PRN Reason: pain Last Admin: 07/03/18 09:55 Dose: 1 ea Lisinopril (Zestril) 20 mg PO DAILY [facility] Last Admin: 07/08/18 08:25 Dose: 20 mg Metformin HCl (Glucophage) 500 mg PO BIDWM [facility] Last Admin: 07/08/18 08:00 Dose: 500 mg Metoprolol Succinate (Toprol Xl) 100 mg PO DAILY [facility] Last Admin: 07/08/18 08:22 Dose: 100 mg Tamsulosin HCl (Flomax) 0.4 mg PO DAILY [facility] Last Admin: 07/08/18 08:22 Dose: 0.4 mg - Labs Labs: 07/06/18 05:36 07/06/18 05:36 PT 12.1 Seconds (9.8-13.1) 06/17/18 05:25 INR 1.1 06/17/18 05:25 APTT 32.3 Seconds (25.6-37.1) 06/17/18 05:25 Assessment and Plan (1) Acute right MCA stroke Status: Acute (2) Left hemiplegia Status: Acute (3) Fracture of neck of left humerus Status: Acute (4) Recurrent falls Status: Acute
[2018-07-08] MEDS: Insulin Detemir 100 Units/ml Inj SC SCH (21:45)
[2018-07-09 06:26] LABS: HEMOGLOBIN 12.7 g/dL (12.0-18.0); MEAN CELL VOLUME 86.3 fl (80.0-94.0); MEAN CORPUSCULAR HEMOGLOBIN 28.6 pg (27.0-31.0); MEAN CORPUSCULAR HGB CONC 33.1 g/dL (33.0-37.0); RBC 4.44 Mil/uL (4.40-5.90); WHITE BLOOD COUNT 6.7 K/uL (4.8-10.8)
[2018-07-09 06:40] LABS: BLOOD UREA NITROGEN 17 mg/dl (9-20); CALCIUM 9.4 mg/dL (8.4-10.2); GFR NON-AFRICAN AMERICAN > 60
[2018-07-09] MEDS: Insulin Lispro (humaLOG) 100 Units/ml Inj SC SCH ×2 (07:08→11:49)
[2018-07-09 07:21] VITALS: O2SAT 98
[2018-07-09] MEDS: Aspirin 325 mg EC Tablets PO SCH (08:11)
[2018-07-09] MEDS: Enoxaparin 40 mg Syringe SC SCH (08:15)
[2018-07-09] MEDS: Metoprolol Succinate 100 mg XL Tab PO SCH (08:15)
--- NOTE | 2018-07-09 11:16 | CP.PCM.PN ---
Subjective - Date & Time of Evaluation Date of Evaluation: 07/09/18 Time of Evaluation: 11:15 - Subjective Subjective: Estuardo Aguilar, born 1945, who has been admitted to [facility] for acute inpatient rehabilitation Left HD male. Right CVA with dense left HP. Also left greater tuberosity fracture. Treated non-operatively. In sling and NWB on the left UE through the shoulder X-ray has been done and shows acute/chronic fracture. not very specific about callus very happy with progress and getting some return in the left UE/LE but more so in the LE Objective - Vital Signs/Intake and Output Vital Signs (last 24 hours): Temp Pulse Resp BP Pulse Ox 96.8 F L 68 20 145/89 98 07/09/18 07:20 07/09/18 08:15 07/09/18 07:20 07/09/18 08:15 07/09/18 07:20 - Medications Medications: Current Medications Acetaminophen (Tylenol 325mg Tab) 650 mg PO Q6H PRN PRN Reason: Pain scale 4-10 Last Admin: 07/08/18 10:37 Dose: 650 mg Amlodipine Besylate (Norvasc) 5 mg PO DAILY [facility] Last Admin: 07/09/18 08:13 Dose: 5 mg Aspirin (Ecotrin) 325 mg PO DAILY [facility] Last Admin: 07/09/18 08:11 Dose: 325 mg Atorvastatin Calcium (Lipitor) 80 mg PO HS [facility] Last Admin: 07/08/18 21:45 Dose: 80 mg Docusate Sodium (Colace) 100 mg PO BID [facility] Last Admin: 07/09/18 08:12 Dose: 100 mg Enoxaparin Sodium (Lovenox) 40 mg SC DAILY [facility]; Protocol Last Admin: 07/09/18 08:15 Dose: 40 mg Gabapentin (Neurontin) 400 mg PO TID [facility] Last Admin: 07/09/18 08:11 Dose: 400 mg Insulin Detemir (Levemir) 30 units SC [facility] Last Admin: 07/08/18 21:45 Dose: 30 units Insulin Human Lispro (Humalog) 0 units SC ACHS [facility]; Protocol Last Admin: 07/09/18 07:08 Dose: 2 units Lactulose (Enulose) 20 gm PO Q12 PRN PRN Reason: for constipation Last Admin: 07/09/18 08:16 Dose: 20 gm Lidocaine (Lidoderm) 1 ea TD DAILY PRN PRN Reason: pain Last Admin: 07/03/18 09:55 Dose: 1 ea Lisinopril (Zestril) 20 mg PO DAILY [facility] Last Admin: 07/09/18 08:13 Dose: 20 mg Metformin HCl (Glucophage) 500 mg PO BIDWM [facility] Last Admin: 07/09/18 08:12 Dose: 500 mg Metoprolol Succinate (Toprol Xl) 100 mg PO DAILY [facility] Last Admin: 07/09/18 08:15 Dose: 100 mg Tamsulosin HCl (Flomax) 0.4 mg PO DAILY [facility] Last Admin: 07/09/18 08:12 Dose: 0.4 mg - Labs Labs: 07/09/18 05:20 07/09/18 05:20 PT 12.1 Seconds (9.8-13.1) 06/17/18 05:25 INR 1.1 06/17/18 05:25 APTT 32.3 Seconds (25.6-37.1) 06/17/18 05:25 - Constitutional Appears: Non-toxic, No Acute Distress - Head Exam Head Exam: ATRAUMATIC, NORMAL INSPECTION, NORMOCEPHALIC - Eye Exam Eye Exam: EOMI - ENT Exam ENT Exam: Mucous Membranes Moist - Respiratory Exam Respiratory Exam: NORMAL BREATHING PATTERN - Cardiovascular Exam Cardiovascular Exam: REGULAR RHYTHM - GI/Abdominal Exam GI & Abdominal Exam: absent: Guarding - Extremities Exam Extremities Exam: absent: Calf Tenderness - Neurological Exam Neurological Exam: Alert (left neglect but improving), Awake - Psychiatric Exam Psychiatric exam: Normal Affect, Normal Mood - Skin Skin Exam: Warm Assessment and Plan - Assessment and Plan (Free Text) Assessment: Estuardo Aguilar, born 1945, who has been admitted to [facility] for acute inpatient rehabilitation Left HD male. Right CVA with dense left HP. Also left greater tuberosity fracture. Treated non-operatively. In sling and NWB on the left UE through the shoulder X-ray has been done and shows acute/chronic fracture. not very specific about callus very happy with progress and getting some return in the left UE/LE today he is set to go to [facility] pain: controlled GI no constipation Resp: no resp distress Card: no palp or SOB
[2018-07-09 12:09] VITALS: BP 153/88; PULSE 77; RESP 18; TEMP 97.7
--- NOTE | 2018-07-09 15:07 | CP.PCM.PN ---
Subjective - Date & Time of Evaluation Date of Evaluation: 07/08/18 Objective - Vital Signs/Intake and Output Vital Signs (last 24 hours): Temp Pulse Resp BP Pulse Ox 97.7 F 77 18 153/88 H 98 07/09/18 12:09 07/09/18 12:09 07/09/18 12:09 07/09/18 12:09 07/09/18 12:09 - Labs Labs: 07/09/18 05:20 07/09/18 05:20 PT 12.1 Seconds (9.8-13.1) 06/17/18 05:25 INR 1.1 06/17/18 05:25 APTT 32.3 Seconds (25.6-37.1) 06/17/18 05:25 Assessment and Plan (1) Acute right MCA stroke Status: Acute (2) Left hemiplegia Status: Acute (3) Fracture of neck of left humerus Status: Acute (4) Recurrent falls Status: Acute
--- NOTE | 2018-07-09 15:07 | CP.PCM.DIS ---
Provider - Provider Date of Admission: 06/16/18 20:51 Attending physician: Mervat Sweet MD Consults: 06/16/18 20:57 Physiatry Consult Routine Comment: Consulting Provider: Sean Li Consulting Physician: Sean Li Reason for Consult: Physiatry Consult 06/16/18 22:12 Case Management Referral Routine Comment: Physician Instructions: Reason For Exam: Reason for Referral: Discharge Planning 06/17/18 01:05 Pharmacist Consult As Ordered Comment: Physician Instructions: Reason For Exam: Patient on Lovenox. Time Spent in preparation of Discharge (in minutes): 25 Diagnosis - Discharge Diagnosis (1) Acute right MCA stroke Status: Acute Priority: High (2) Left hemiplegia Status: Acute Priority: High (3) Fracture of neck of left humerus Status: Acute Priority: High (4) Recurrent falls Status: Acute Priority: High Hospital Course - Lab Results Lab Results: Most Recent Lab Values WBC 6.7 K/uL (4.8-10.8) 07/09/18 05:20 RBC 4.44 Mil/uL (4.40-5.90) 07/09/18 05:20 Hgb 12.7 g/dL (12.0-18.0) 07/09/18 05:20 Hct 38.4 % (35.0-51.0) 07/09/18 05:20 MCV 86.3 fl (80.0-94.0) 07/09/18 05:20 MCH 28.6 pg (27.0-31.0) 07/09/18 05:20 MCHC 33.1 g/dL (33.0-37.0) 07/09/18 05:20 RDW 15.0 % (11.5-14.5) H 07/09/18 05:20 Plt Count 173 K/uL (130-400) 07/09/18 05:20 PT 12.1 Seconds (9.8-13.1) 06/17/18 05:25 INR 1.1 06/17/18 05:25 APTT 32.3 Seconds (25.6-37.1) 06/17/18 05:25 Sodium 140 mmol/l (132-148) 07/09/18 05:20 Potassium 4.1 MMOL/L (3.6-5.0) 07/09/18 05:20 Chloride 102 mmol/L (98-107) 07/09/18 05:20 Carbon Dioxide 30 mmol/L (22-30) 07/09/18 05:20 Anion Gap 12 (10-20) 07/09/18 05:20 BUN 17 mg/dl (9-20) 07/09/18 05:20 Creatinine 1.0 mg/dl (0.8-1.5) 07/09/18 05:20 Est GFR ( Amer) > 60 07/09/18 05:20 Est GFR (Non-Af Amer) > 60 07/09/18 05:20 POC Glucose (mg/dL) 155 mg/dL (65-110) H 07/09/18 06:45 Random Glucose 173 mg/dL (75-110) H 07/09/18 05:20 Calcium 9.4 mg/dL (8.4-10.2) 07/09/18 05:20 Total Bilirubin 0.7 mg/dl (0.2-1.3) 06/17/18 05:25 AST 30 U/L (17-59) 06/17/18 05:25 ALT 37 U/L (21-72) 06/17/18 05:25 Alkaline Phosphatase 102 U/L (38-126) 06/17/18 05:25 Total Protein 6.7 G/DL (6.3-8.2) 06/17/18 05:25 Albumin 3.6 g/dL (3.5-5.0) 06/17/18 05:25 Globulin 3.1 gm/dL (2.2-3.9) 06/17/18 05:25 Albumin/Globulin Ratio 1.2 (1.0-2.1) 06/17/18 05:25 Prostate Specific Ag 0.793 ng/ML (0.00-4.0) 06/18/18 05:25 Discharge Exam - Head Exam Head Exam: ATRAUMATIC, NORMAL INSPECTION, NORMOCEPHALIC Discharge Plan - Follow Up Plan Condition: GOOD Disposition: TRANSF TO SNF Instructions: Insulin Detemir, Lidocaine (Topical), Preventing Falls, Right- Side Stroke (DC), Acetaminophen, Amlodipine, Aspirin, Atorvastatin, Docusate, Enoxaparin, Gabapentin, Lactulose, Lisinopril, Metformin, Metoprolol, Tamsulosin, Shoulder Fracture (DC), Insulin Lispro Additional Instructions: Fall Precaution . Maintain left shoulder immobilizer @ all times, non weight bearing to the left upper extremity @ all times. passive range of motion. Follow-up w/ Dr Eugenio Cantu in 2 weeks pls call for appointment Tel. [phone].Needs assistance w/ all daily activities, set up tray able to eat self . Vision impaired. Referrals: Christal Cantu MD [Staff Provider] -
== END 2018-07-09 13:20 | DRG 57 ==
PROVIDERS: ADMIT Internal Medicine; ATTEND Internal Medicine
PROC: F07Z9FZ Gait Training/Functional Ambulation Treatment using Assistive, Adaptive, Supportive or Protective Equipment (ICD-10-PCS; principal; 2018-06-17)
PROC: F07M6FZ Therapeutic Exercise Treatment of Musculoskeletal System - Whole Body using Assistive, Adaptive, Supportive or Protective Equipment (ICD-10-PCS; 2018-06-17)
PROC: F08Z4FZ Home Management Treatment using Assistive, Adaptive, Supportive or Protective Equipment (ICD-10-PCS; 2018-06-17)
DX: I69.354 Hemiplegia and hemiparesis following cerebral infarction affecting left non-dominant side (principal); S42.212D Unspecified displaced fracture of surgical neck of left humerus, subsequent encounter for fracture with routine healing; H54.61 Unqualified visual loss, right eye, normal vision left eye; I10 Essential (primary) hypertension; I25.10 Atherosclerotic heart disease of native coronary artery without angina pectoris; I25.2 Old myocardial infarction; R29.6 Repeated falls; X58.XXXD Exposure to other specified factors, subsequent encounter; Z95.5 Presence of coronary angioplasty implant and graft; E11.9 Type 2 diabetes mellitus without complications; E78.00 Pure hypercholesterolemia, unspecified